=== PATIENT | female | born 1975 | race Two or more races ===

== ENCOUNTER 2016-12-07 00:15 | Emergency (ER) | payer MEDICAID ==
[~2016-12-07] VITALS: Ht 167.6 cm; Wt 80.3 kg
[2016-12-07 00:45] VITALS: BP 124/68
[2016-12-07 01:08] LABS: Basophils # (auto) 0 uL; Basophils % (auto) 0.3 % (0.0-2.0); CONDITION Y; DEFINITIVE SEE PRINTOUT; Eosinophils # (auto) 0.5 uL; Eosinophils % (auto) 4.7 % (0.0-7.0); Hematocrit 34.8 % (36.0-46.0); Hemoglobin 11.1 g/dL (12.2-16.2); Lymphocytes # (auto) 1.3 uL; Lymphocytes % (auto) 12.2 % (10.0-50.0); Mean Corpuscular Hemoglobin 24.4 pg (28.0-32.0); Mean Corpuscular Hgb Conc. 31.9 g/dL (32.0-36.0); Mean Corpuscular Volume 76.4 fL (80.0-100.0); Mean Platelet Volume 10.2 fL (7.4-10.4); Monocytes # (auto) 0.9 uL; Monocytes % (auto) 8.4 % (0.0-12.0); Neutrophils # (auto) 7.7 uL; Neutrophils % (auto) 74.4 % (37.0-80.0); Platelet Count (auto) 308 10^3/uL (140-450); Red Cell Distribution Width 17.5 % (11.6-16.0); White Blood Cell 10.3 10^3/uL (4.4-10.8)
[2016-12-07 01:32] LABS: Albumin 3.4 g/dL (3.4-5.0); Amylase 79 U/L (25-115); Anion Gap 10 (5-15); Aspartate Aminotransferase 10 U/L (15-37); BUN/Creatinine Ratio 14.9; Blood Urea Nitrogen 10 mg/dL (7-18); Calcium 9.4 mg/dL (8.5-10.1); Carbon Dioxide 23 mmol/L (21-32); Chloride 108 mmol/L (98-107); GFR African American 124 mL/min; GFR Non-African American 103 mL/min; Glucose 116 mg/dL (74-106); Sodium 141 mmol/L (136-145)
[2016-12-07 01:37] LABS: Alkaline Phosphatase 81 U/L (45-117); Bilirubin, Total 0.2 mg/dL (0.2-1.0); Total Protein 7.8 g/dL (6.4-8.2)
[2016-12-07 02:52] LABS: Urine Bilirubin Negative (Negative); Urine Blood Negative /uL (Negative); Urine Color Yellow (Yellow); Urine Glucose Normal (Normal); Urine Ketone Negative (Negative); Urine Nitrite Negative (Negative); Urine RBC <1 /hpf (0 - 4); Urine Squamous Epithelial Cell FEW /hpf (<5); Urine Urobilinogen Normal (Negative)
== END 2016-12-07 06:03 | disposition left against medical advice (07) ==
LOC: ER 00:15
DX: R50.9 Fever, unspecified (principal); R10.30 Lower abdominal pain, unspecified; Z53.21 Procedure and treatment not carried out due to patient leaving prior to being seen by health care provider
CPT/HCPCS: 36415; 80053; 81001; 81025; 82150; 83690; 84484; 85025

== ENCOUNTER 2018-08-31 12:53 | Emergency (ER) | payer MEDICAID ==
[~2018-08-31] VITALS: Ht 170.2 cm; Wt 83.9 kg
[2018-08-31 13:57] LABS: Basophils # (auto) 0 uL; Basophils % (auto) 0.5 % (0.0-2.0); Eosinophils # (auto) 0.4 uL; Eosinophils % (auto) 5.5 % (0.0-7.0); Hematocrit 42.5 % (36.0-46.0); Hemoglobin 14.3 g/dL (12.2-16.2); Lymphocytes # (auto) 1.2 uL; Lymphocytes % (auto) 16.3 % (10.0-50.0); Mean Corpuscular Hemoglobin 29.1 pg (28.0-32.0); Mean Corpuscular Hgb Conc. 33.5 g/dL (32.0-36.0); Mean Corpuscular Volume 86.8 fL (80.0-100.0); Monocytes # (auto) 0.5 uL; Neutrophils # (auto) 5.4 uL; Neutrophils % (auto) 70.7 % (37.0-80.0); Nucleated Red Blood Cells % 0.1 %; Platelet Count (auto) 236 10^3/uL (140-450); Red Cell Distribution Width 13.9 % (11.8-14.3); White Blood Cell 7.6 10^3/uL (4.4-10.8)
[2018-08-31 14:06] LABS: Albumin 3.7 g/dL (3.4-5.0); BUN/Creatinine Ratio 16.1; Calcium 10.2 mg/dL (8.5-10.1); Potassium 3.4 mmol/L (3.5-5.1)
[2018-08-31 14:09] LABS: Bilirubin, Total 0.2 mg/dL (0.2-1.0); Total Protein 7.7 g/dL (6.4-8.2)
[2018-08-31] MEDS ORDERED: POTASSIUM CHL 10% (20 MEQ/15ML) 15ml ORAL SOLN PO ONE (17:15)
[2018-08-31 18:24] VITALS: BP 136/53
== END 2018-08-31 18:35 | disposition home or self-care (01) ==
LOC: ER 13:03
DX: N83.202 Unspecified ovarian cyst, left side (principal); F17.210 Nicotine dependence, cigarettes, uncomplicated; Z90.49 Acquired absence of other specified parts of digestive tract; Z90.710 Acquired absence of both cervix and uterus
CPT/HCPCS: 36415; 74176; 80053; 85025

== ENCOUNTER 2020-08-01 22:29 | Emergency (ER) | payer MEDICAID ==
[~2020-08-01] VITALS: Ht 170.2 cm; Wt 86.2 kg
[2020-08-02 00:05] LABS: Albumin 3.8 g/dL (3.4-5.0); BUN/Creatinine Ratio 15.1; Basophils # (auto) 0.1 10 ^3/uL (0-0.2); Basophils % (auto) 0.7 % (0.0-2.0); Bilirubin, Total 0.3 mg/dL (0.2-1.0); Calcium 9.8 mg/dL (8.5-10.1); Eosinophils # (auto) 0.4 10 ^3/uL (0-0.8); Eosinophils % (auto) 4.9 % (0.0-7.0); Hematocrit 41.1 % (36.0-46.0); Hemoglobin 14.1 g/dL (12.2-16.2); Lymphocytes # (auto) 1.7 10 ^3/uL (0.4-5.4); Lymphocytes % (auto) 19.6 % (10.0-50.0); Mean Corpuscular Hemoglobin 29.4 pg (28.0-32.0); Mean Corpuscular Hgb Conc. 34.4 g/dL (32.0-36.0); Mean Corpuscular Volume 85.4 fL (80.0-100.0); Monocytes # (auto) 0.8 10 ^3/uL (0-1.3); Monocytes % (auto) 9.5 % (0.0-12.0); Neutrophils # (auto) 5.7 10 ^3/uL (1.6-8.6); Neutrophils % (auto) 65.3 % (37.0-80.0); Nucleated Red Blood Cells % 0.1 %; Platelet Count (auto) 220 10^3/uL (140-450); Red Cell Distribution Width 13.8 % (11.8-14.3); Total Protein 7.8 g/dL (6.4-8.2); White Blood Cell 8.8 10^3/uL (4.4-10.8)
[2020-08-02] MEDS ORDERED: MORPHINE SULFATE 4 MG/ML SYR/VIAL ONE (00:07)
[2020-08-02] MEDS ORDERED: ONDANSETRON HCL 4 MG/2 ML VIAL ONE (00:07)
[2020-08-02] MEDS ORDERED: MORPHINE SULFATE 4 MG/ML SYR/VIAL IV ONE (00:10)
[2020-08-02] MEDS ORDERED: ONDANSETRON HCL 4 MG/2 ML VIAL IV ONE (00:10)
[2020-08-02 00:13] LABS: Urine Bacteria FEW /hpf (None Seen); Urine Blood Negative /uL (Negative); Urine WBC 1 /hpf (0 - 5)
[2020-08-02] MEDS ORDERED: metroNIDAZOLE 500 MG TAB PO ONE (02:30)
[2020-08-02] MEDS ORDERED: CIPROFLOXACIN HCL 500 MG TAB PO ONE (02:30)
[2020-08-02 04:00] VITALS: BP 98/61
== END 2020-08-02 04:47 | disposition home or self-care (01) ==
LOC: ER 22:35
DX: K57.90 Diverticulosis of intestine, part unspecified, without perforation or abscess without bleeding (principal); F17.210 Nicotine dependence, cigarettes, uncomplicated
CPT/HCPCS: 36415; 74176; 80053; 81001; 85025; 96374; 96375; 99285; J2270; J2405

== ENCOUNTER 2020-10-31 14:42 | Inpatient (IN) | payer MEDICAID ==
[~2020-10-31] VITALS: Ht 165.1 cm; Wt 85.7 kg
[2020-10-31] MEDS ORDERED: metroNIDAZOLE 500MG/100ML 100 ML IV ONE (16:30)
[2020-10-31] MEDS ORDERED: ONDANSETRON HCL 4 MG/2 ML VIAL IV ONE (16:30)
[2020-10-31] MEDS ORDERED: MORPHINE SULF INJ 2 MG/ML SYRINGE 1ML IV ONE (16:30)
[2020-10-31] MEDS ORDERED: SODIUM CHLORIDE 0.9% 1,000 ML IV ONE (16:30)
[2020-10-31] MEDS ORDERED: cefTRIAXone 1GM/50ML D5W 50 ML IV ONE (16:30)
[2020-10-31 17:15] LABS: Basophils # (auto) 0.1 10 ^3/uL (0-0.2); Basophils % (auto) 0.5 % (0.0-2.0); Eosinophils # (auto) 0.4 10 ^3/uL (0-0.8); Eosinophils % (auto) 3.5 % (0.0-7.0); Hemoglobin 14.6 g/dL (12.2-16.2); Lymphocytes # (auto) 1.6 10 ^3/uL (0.4-5.4); Lymphocytes % (auto) 14.8 % (10.0-50.0); Mean Corpuscular Hemoglobin 30.5 pg (28.0-32.0); Mean Corpuscular Hgb Conc. 35.7 g/dL (32.0-36.0); Mean Corpuscular Volume 85.5 fL (80.0-100.0); Monocytes % (auto) 9.7 % (0.0-12.0); Neutrophils # (auto) 7.6 10 ^3/uL (1.6-8.6); Neutrophils % (auto) 71.5 % (37.0-80.0); Nucleated Red Blood Cells % 1.6 %; Platelet Count (auto) 196 10^3/uL (140-450); Red Cell Distribution Width 14.2 % (11.8-14.3); White Blood Cell 10.6 10^3/uL (4.4-10.8)
[2020-10-31 17:30] LABS: Albumin 3.9 g/dL (3.4-5.0); Calcium 10.1 mg/dL (8.5-10.1); Potassium 3.8 mmol/L (3.5-5.1)
[2020-10-31 17:33] LABS: BUN/Creatinine Ratio 6.8
[2020-10-31 17:34] LABS: Bilirubin, Total 0.5 mg/dL (0.2-1.0); Total Protein 8.3 g/dL (6.4-8.2)
[2020-10-31] MEDS ORDERED: ONDANSETRON HCL 4 MG/2 ML VIAL IV PRN (21:00)
[2020-10-31] MEDS ORDERED: DOCUSATE SOD 100 MG CAP PO PRN (21:00)
[2020-10-31] MEDS ORDERED: ACETAMINOPHEN 325 MG TAB PO PRN (21:00)
[2020-10-31] MEDS ORDERED: TEMAZEPAM 15 MG CAP PO PRN (21:00)
[2020-10-31] MEDS: metroNIDAZOLE 500MG/100ML 100 ML IV SCH (22:59)
[2020-10-31] MEDS: FAMOTIDINE 20 MG TAB PO SCH (23:00)
[2020-11-01] MEDS: metroNIDAZOLE 500MG/100ML 100 ML IV SCH ×3 (06:27→21:02)
[2020-11-01 07:00] LABS: Basophils # (auto) 0 10 ^3/uL (0-0.2); Basophils % (auto) 0.5 % (0.0-2.0); Eosinophils # (auto) 0.4 10 ^3/uL (0-0.8); Eosinophils % (auto) 4.7 % (0.0-7.0); Hematocrit 37.7 % (36.0-46.0); Hemoglobin 13.2 g/dL (12.2-16.2); Lymphocytes # (auto) 1.7 10 ^3/uL (0.4-5.4); Lymphocytes % (auto) 18.7 % (10.0-50.0); Mean Corpuscular Hemoglobin 30.1 pg (28.0-32.0); Mean Corpuscular Hgb Conc. 34.9 g/dL (32.0-36.0); Mean Corpuscular Volume 86.2 fL (80.0-100.0); Monocytes % (auto) 11.2 % (0.0-12.0); Neutrophils # (auto) 5.7 10 ^3/uL (1.6-8.6); Neutrophils % (auto) 64.9 % (37.0-80.0); Nucleated Red Blood Cells % 0.1 %; Platelet Count (auto) 172 10^3/uL (140-450); Red Blood Cells 4.38 10^6/uL (4.0-5.20); White Blood Cell 8.8 10^3/uL (4.4-10.8)
[2020-11-01 07:30] LABS: BUN/Creatinine Ratio 8.5; Calcium 8.9 mg/dL (8.5-10.1); Potassium 3.8 mmol/L (3.5-5.1)
[2020-11-01] MEDS: cefTRIAXone 1GM/50ML D5W 50 ML IV SCH (09:45)
[2020-11-01] MEDS: FAMOTIDINE 20 MG TAB PO SCH ×2 (09:45→21:03)
[2020-11-01] MEDS: HYDROcodone-ACET 5/325MG TAB PO PRN ×2 (10:03→21:14)
[2020-11-01] MEDS: DOCUSATE SOD 100 MG CAP PO SCH ×2 (12:24→21:02)
[2020-11-01] MEDS: SODIUM CHLORIDE 0.9% 1,000 ML IV SCH ×2 (12:24→21:01)
[2020-11-01 13:00] VITALS: BP 104/58
[2020-11-01 16:00] VITALS: BP 111/74
[2020-11-01 16:48] VITALS: BP 114/63
[2020-11-01] MEDS: SENNA 8.6 MG TAB PO SCH (21:03)
[2020-11-01 21:53] VITALS: BP 114/65
[2020-11-02 04:43] VITALS: BP 103/66
[2020-11-02] MEDS: metroNIDAZOLE 500MG/100ML 100 ML IV SCH ×3 (05:46→21:49)
[2020-11-02 06:29] LABS: Urine Bacteria NONE SEEN /hpf (None Seen); Urine Blood Negative /uL (Negative); Urine Mucus FEW (None Seen); Urine Specific Gravity 1.005 (1.001-1.035); Urine WBC <1 /hpf (0 - 5)
[2020-11-02 06:36] LABS: Basophils # (auto) 0 10 ^3/uL (0-0.2); Basophils % (auto) 0.8 % (0.0-2.0); Eosinophils # (auto) 0.7 10 ^3/uL (0-0.8); Eosinophils % (auto) 14.2 % (0.0-7.0); Hemoglobin 12.9 g/dL (12.2-16.2); Lymphocytes # (auto) 1.1 10 ^3/uL (0.4-5.4); Lymphocytes % (auto) 22.3 % (10.0-50.0); Mean Corpuscular Volume 85.7 fL (80.0-100.0); Monocytes # (auto) 0.6 10 ^3/uL (0-1.3); Monocytes % (auto) 11.7 % (0.0-12.0); Neutrophils # (auto) 2.6 10 ^3/uL (1.6-8.6); Platelet Count (auto) 161 10^3/uL (140-450); Red Blood Cells 4.32 10^6/uL (4.0-5.20); Red Cell Distribution Width 14.3 % (11.8-14.3); White Blood Cell 5.1 10^3/uL (4.4-10.8)
[2020-11-02 06:53] LABS: Calcium 9.1 mg/dL (8.5-10.1); Potassium 3.7 mmol/L (3.5-5.1)
[2020-11-02] MEDS: SODIUM CHLORIDE 0.9% 1,000 ML IV SCH ×2 (08:00→18:42)
[2020-11-02 08:36] VITALS: BP 100/55
[2020-11-02] MEDS: DOCUSATE SOD 100 MG CAP PO SCH ×2 (10:28→21:49)
[2020-11-02] MEDS: FAMOTIDINE 20 MG TAB PO SCH ×2 (10:28→21:49)
[2020-11-02] MEDS: cefTRIAXone 1GM/50ML D5W 50 ML IV SCH (10:28)
[2020-11-02] MEDS: HYDROcodone-ACET 5/325MG TAB PO PRN (10:29)
[2020-11-02] MEDS: MORPHINE SULF INJ 2 MG/ML SYRINGE 1ML IV PRN ×2 (12:06→20:45)
[2020-11-02 13:31] VITALS: BP 115/51
[2020-11-02 16:12] VITALS: BP 113/69
[2020-11-02] MEDS: SENNA 8.6 MG TAB PO SCH (21:50)
[2020-11-02 22:00] VITALS: BP 112/67
[2020-11-03] MEDS: SODIUM CHLORIDE 0.9% 1,000 ML IV SCH ×2 (03:43→14:15)
[2020-11-03 05:00] VITALS: BP 104/76
[2020-11-03 05:14] LABS: Basophils # (auto) 0 10 ^3/uL (0-0.2); Basophils % (auto) 0.9 % (0.0-2.0); Eosinophils # (auto) 0.6 10 ^3/uL (0-0.8); Eosinophils % (auto) 12.7 % (0.0-7.0); Hematocrit 38.6 % (36.0-46.0); Hemoglobin 13.7 g/dL (12.2-16.2); Lymphocytes # (auto) 1.1 10 ^3/uL (0.4-5.4); Lymphocytes % (auto) 22.7 % (10.0-50.0); Mean Corpuscular Hemoglobin 30.2 pg (28.0-32.0); Mean Corpuscular Hgb Conc. 35.4 g/dL (32.0-36.0); Mean Corpuscular Volume 85.4 fL (80.0-100.0); Monocytes # (auto) 0.5 10 ^3/uL (0-1.3); Monocytes % (auto) 9.4 % (0.0-12.0); Neutrophils # (auto) 2.6 10 ^3/uL (1.6-8.6); Neutrophils % (auto) 54.3 % (37.0-80.0); Nucleated Red Blood Cells % 0.1 %; Platelet Count (auto) 191 10^3/uL (140-450); Red Blood Cells 4.52 10^6/uL (4.0-5.20); Red Cell Distribution Width 13.9 % (11.8-14.3); White Blood Cell 4.9 10^3/uL (4.4-10.8)
[2020-11-03] MEDS: metroNIDAZOLE 500MG/100ML 100 ML IV SCH ×3 (05:33→22:33)
[2020-11-03 05:34] LABS: Calcium 9.4 mg/dL (8.5-10.1); Potassium 3.9 mmol/L (3.5-5.1)
[2020-11-03 05:36] LABS: BUN/Creatinine Ratio 9.1
[2020-11-03 09:00] VITALS: BP 99/52
[2020-11-03] MEDS: cefTRIAXone 1GM/50ML D5W 50 ML IV SCH (09:41)
[2020-11-03] MEDS: DOCUSATE SOD 100 MG CAP PO SCH ×2 (09:47→22:34)
[2020-11-03] MEDS: FAMOTIDINE 20 MG TAB PO SCH ×2 (09:47→22:34)
[2020-11-03] MEDS: MORPHINE SULF INJ 2 MG/ML SYRINGE 1ML IV PRN (12:15)
[2020-11-03 12:41] VITALS: BP 115/78
[2020-11-03 16:59] VITALS: BP 135/75
[2020-11-03 22:00] VITALS: BP 114/61
[2020-11-03] MEDS: SENNA 8.6 MG TAB PO SCH (22:00)
[2020-11-04] MEDS: SODIUM CHLORIDE 0.9% 1,000 ML IV SCH ×2 (02:32→10:00)
[2020-11-04 05:00] VITALS: BP 108/69
[2020-11-04 05:59] LABS: Basophils # (auto) 0 10 ^3/uL (0-0.2); Basophils % (auto) 0.9 % (0.0-2.0); Eosinophils # (auto) 0.5 10 ^3/uL (0-0.8); Eosinophils % (auto) 12.1 % (0.0-7.0); Hematocrit 39.8 % (36.0-46.0); Hemoglobin 13.8 g/dL (12.2-16.2); Lymphocytes # (auto) 0.9 10 ^3/uL (0.4-5.4); Lymphocytes % (auto) 20.6 % (10.0-50.0); Mean Corpuscular Hemoglobin 29.6 pg (28.0-32.0); Mean Corpuscular Hgb Conc. 34.7 g/dL (32.0-36.0); Mean Corpuscular Volume 85.3 fL (80.0-100.0); Monocytes # (auto) 0.5 10 ^3/uL (0-1.3); Monocytes % (auto) 11.6 % (0.0-12.0); Neutrophils # (auto) 2.5 10 ^3/uL (1.6-8.6); Neutrophils % (auto) 54.8 % (37.0-80.0); Nucleated Red Blood Cells % 0.2 %; Platelet Count (auto) 211 10^3/uL (140-450); Red Blood Cells 4.67 10^6/uL (4.0-5.20); Red Cell Distribution Width 13.8 % (11.8-14.3); White Blood Cell 4.5 10^3/uL (4.4-10.8)
[2020-11-04 06:18] LABS: Potassium 3.7 mmol/L (3.5-5.1)
[2020-11-04 06:35] LABS: BUN/Creatinine Ratio 8.6; Calcium 9.6 mg/dL (8.5-10.1)
[2020-11-04] MEDS: metroNIDAZOLE 500MG/100ML 100 ML IV SCH ×2 (06:35→14:00)
[2020-11-04 09:00] VITALS: BP 107/65
[2020-11-04] MEDS: cefTRIAXone 1GM/50ML D5W 50 ML IV SCH (09:31)
[2020-11-04] MEDS: FAMOTIDINE 20 MG TAB PO SCH (09:56)
[2020-11-04] MEDS: DOCUSATE SOD 100 MG CAP PO SCH (09:56)
[2020-11-04] MEDS ORDERED: METR500T PO (10:11)
[2020-11-04] MEDS ORDERED: CIPR-173 PO (10:11)
[2020-11-04] MEDS ORDERED: SENN-58 PO (10:11)
[2020-11-04 13:00] VITALS: BP 124/69
== END 2020-11-04 16:20 | disposition home or self-care (01) | DRG 244 ==
LOC: ER 14:43 → OVERFLOW 20:58 → CENTRAL 11-01 10:49
PROVIDERS: ADMIT Nurse Practitioner; ATTEND Internal Medicine Pulmonary Disease
DX: K57.32 Diverticulitis of large intestine without perforation or abscess without bleeding (principal); K59.00 Constipation, unspecified; N83.202 Unspecified ovarian cyst, left side; Z72.0 Tobacco use; Z90.710 Acquired absence of both cervix and uterus; Z90.49 Acquired absence of other specified parts of digestive tract; Z20.822 Contact with and (suspected) exposure to COVID-19
CPT/HCPCS: 36415; 74176; 76830; 76856; 80048; 80053; 81001; 85025; 87426; 96365; 96366; 96375; G0378; J0696; J2405; J3490

== ENCOUNTER → 2021-06-11 | Emergency (ER) | payer MEDICAID ==
[~2021-06-11] VITALS: Ht 167.6 cm; Wt 63.5 kg
[~2021-06-11] MED LIST: ACET-1158 PO; ACETAMINOPHEN 325 MG TAB PO ONE; ALBUAER3 IN; BENZ100C97 PO; CIPR-173 PO; DOXY-286 PO; METR500T PO; PRED20TA2 PO; SENN-58 PO; SODIUM CHLORIDE 0.9% 1,000 ML IV ONE; cefTRIAXone SOD 1,000 MG VL IM ONE; methylPREDNISolone SOD SUCC 125 MG/2 ML VL IM ONE
[2021-06-11 17:21] VITALS: BP 110/61
== END | disposition home or self-care (01) ==
LOC: ER 11:01
DX: U07.1 COVID-19 (principal); J12.82 Pneumonia due to coronavirus disease 2019; E11.9 Type 2 diabetes mellitus without complications; F17.210 Nicotine dependence, cigarettes, uncomplicated; Z90.49 Acquired absence of other specified parts of digestive tract; Z90.710 Acquired absence of both cervix and uterus
CPT/HCPCS: 36415; 71045; 87426; 96372; 99284; J0696; J2930

== ENCOUNTER 2021-07-26 19:22 | Emergency (ER) | payer MEDICAID ==
[~2021-07-26] VITALS: Ht 157.5 cm; Wt 86.2 kg
[~2021-07-26 19:22] MED LIST changes: -ACETAMINOPHEN 325 MG TAB PO ONE; -SODIUM CHLORIDE 0.9% 1,000 ML IV ONE; -cefTRIAXone SOD 1,000 MG VL IM ONE; -methylPREDNISolone SOD SUCC 125 MG/2 ML VL IM ONE
[2021-07-26] MEDS ORDERED: traMADol HCL 50 MG TAB PO ONE (20:30)
[2021-07-26 20:47] VITALS: BP 135/82
== END 2021-07-26 20:48 | disposition home or self-care (01) ==
LOC: ER 19:22
DX: G44.209 Tension-type headache, unspecified, not intractable (principal); E11.9 Type 2 diabetes mellitus without complications; F17.210 Nicotine dependence, cigarettes, uncomplicated; Z90.49 Acquired absence of other specified parts of digestive tract; Z90.710 Acquired absence of both cervix and uterus
CPT/HCPCS: 70450

== ENCOUNTER → 2021-11-09 22:19 | Emergency (ER) | payer MEDICAID | END | disposition left against medical advice (07) | LOC: ER 22:19 | DX: F41.0 Panic disorder [episodic paroxysmal anxiety] (principal); Z53.21 Procedure and treatment not carried out due to patient leaving prior to being seen by health care provider ==

== ENCOUNTER 2021-12-19 13:27 | Inpatient (IN) | payer MEDICAID ==
[~2021-12-19] VITALS: Ht 170.2 cm; Wt 83.8 kg
[2021-12-19] MEDS ORDERED: metroNIDAZOLE 500MG/100ML 100 ML IV ONE (15:00)
[2021-12-19] MEDS ORDERED: SODIUM CHLORIDE 0.9% 1,000 ML IV ONE ×2 (15:00)
[2021-12-19] MEDS ORDERED: cefTRIAXone 1GM/50ML D5W 50 ML IV ONE (15:00)
[2021-12-19 15:11] LABS: Basophils # (auto) 0 10 ^3/uL (0-0.2); Basophils % (auto) 0.4 % (0.0-2.0); Eosinophils # (auto) 0.4 10 ^3/uL (0-0.8); Eosinophils % (auto) 5.4 % (0.0-7.0); Hematocrit 43.7 % (36.0-46.0); Hemoglobin 14.5 g/dL (12.2-16.2); Lymphocytes % (auto) 12.6 % (10.0-50.0); Mean Corpuscular Hemoglobin 28.4 pg (28.0-32.0); Mean Corpuscular Hgb Conc. 33.3 g/dL (32.0-36.0); Mean Corpuscular Volume 85.4 fL (80.0-100.0); Monocytes # (auto) 0.8 10 ^3/uL (0-1.3); Neutrophils # (auto) 5.8 10 ^3/uL (1.6-8.6); Neutrophils % (auto) 71.6 % (37.0-80.0); Nucleated Red Blood Cells % 0.1 %; Red Blood Cells 5.11 10^6/uL (4.0-5.20); Red Cell Distribution Width 14.6 % (11.8-14.3); White Blood Cell 8.1 10^3/uL (4.4-10.8)
[2021-12-19 15:15] LABS: Urine Bacteria FEW /hpf (None Seen); Urine Blood Negative /uL (Negative); Urine Specific Gravity 1.021 (1.001-1.035); Urine WBC <1 /hpf (0 - 5)
[2021-12-19 15:40] LABS: Albumin 4.3 g/dL (3.4-5.0); BUN/Creatinine Ratio 11.9; Calcium 10.8 mg/dL (8.5-10.1); Potassium 3.7 mmol/L (3.5-5.1)
[2021-12-19 15:43] LABS: Bilirubin, Total 0.4 mg/dL (0.2-1.0); Total Protein 8.2 g/dL (6.4-8.2)
[2021-12-19] MEDS: SODIUM CHLORIDE 0.9% 1,000 ML IV SCH (18:30)
[2021-12-19] MEDS ORDERED: ONDANSETRON HCL 4 MG/2 ML VIAL IV PRN (18:30)
[2021-12-19] MEDS ORDERED: DEXTROSE (50%) 50ML SYRG IV PRN (18:30)
[2021-12-19 19:23] LABS: Cholesterol 75 mg/dL (< 200)
[2021-12-19 19:25] LABS: HDL Cholesterol 34 mg/dL (40-59); LDL Cholesterol 39 mg/dL (< 100); Triglycerides 71 mg/dL (< 150)
[2021-12-19] MEDS ORDERED: ATOR10TA52 PO (20:34)
[2021-12-19] MEDS ORDERED: METF-370 PO (20:34)
[2021-12-19] MEDS ORDERED: LISI2.5T47 PO (20:34)
[2021-12-19] MEDS: metroNIDAZOLE 500MG/100ML 100 ML IV SCH (22:19)
[2021-12-19] MEDS: ACCU-CHEK COMFORT CURVE STRIP VI SCH (23:44)
[2021-12-19] MEDS: InsuLIN REG 1unit/0.01ml Soln (100units/ml) SC SCH (23:46)
[2021-12-19] MEDS: MORPHINE SULFATE INJ 2 MG/ml SYRG IV PRN (23:52)
[2021-12-20 04:25] VITALS: BP 93/57
[2021-12-20] MEDS: SODIUM CHLORIDE 0.9% 1,000 ML IV SCH ×4 (04:54→21:30)
[2021-12-20] MEDS: ACCU-CHEK COMFORT CURVE STRIP VI SCH ×3 (05:24→18:58)
[2021-12-20] MEDS: InsuLIN REG 1unit/0.01ml Soln (100units/ml) SC SCH ×3 (05:24→18:57)
[2021-12-20] MEDS: metroNIDAZOLE 500MG/100ML 100 ML IV SCH ×3 (05:34→22:33)
[2021-12-20 06:28] LABS: Basophils # (auto) 0 10 ^3/uL (0-0.2); Basophils % (auto) 0.5 % (0.0-2.0); Eosinophils # (auto) 0.5 10 ^3/uL (0-0.8); Eosinophils % (auto) 7.7 % (0.0-7.0); Hematocrit 36.9 % (36.0-46.0); Hemoglobin 12.6 g/dL (12.2-16.2); Lymphocytes # (auto) 1.2 10 ^3/uL (0.4-5.4); Lymphocytes % (auto) 21.2 % (10.0-50.0); Mean Corpuscular Hemoglobin 28.9 pg (28.0-32.0); Mean Corpuscular Hgb Conc. 34.1 g/dL (32.0-36.0); Mean Corpuscular Volume 84.8 fL (80.0-100.0); Monocytes # (auto) 0.8 10 ^3/uL (0-1.3); Monocytes % (auto) 13.5 % (0.0-12.0); Neutrophils # (auto) 3.4 10 ^3/uL (1.6-8.6); Neutrophils % (auto) 57.1 % (37.0-80.0); Red Blood Cells 4.35 10^6/uL (4.0-5.20); Red Cell Distribution Width 14.5 % (11.8-14.3); White Blood Cell 5.9 10^3/uL (4.4-10.8)
[2021-12-20 06:36] LABS: Potassium 3.9 mmol/L (3.5-5.1)
[2021-12-20 06:42] LABS: Albumin 3.5 g/dL (3.4-5.0); Calcium 9.3 mg/dL (8.5-10.1)
[2021-12-20 06:45] LABS: Bilirubin, Total 0.4 mg/dL (0.2-1.0); Total Protein 6.9 g/dL (6.4-8.2)
[2021-12-20 08:00] VITALS: BP 97/62
[2021-12-20 09:00] VITALS: BP 104/67
[2021-12-20] MEDS: MORPHINE SULFATE INJ 2 MG/ml SYRG IV PRN ×2 (09:46→22:34)
[2021-12-20] MEDS: NICOTINE 7MG/24HR TOPICAL PATCH TD SCH (09:49)
[2021-12-20] MEDS ORDERED: cefTRIAXone 1GM/50ML D5W 50 ML IV ONE (11:30)
[2021-12-20 13:00] VITALS: BP 97/62
[2021-12-20 16:55] VITALS: BP 98/58
[2021-12-20 22:00] VITALS: BP 109/62
[2021-12-21] VITALS (7 sets, daily range): BP systolic 100–120; BP diastolic 61–69
[2021-12-21] MEDS: InsuLIN REG 1unit/0.01ml Soln (100units/ml) SC SCH ×4 (00:39→17:54)
[2021-12-21] MEDS: ACCU-CHEK COMFORT CURVE STRIP VI SCH ×4 (00:39→18:11)
[2021-12-21] MEDS: SODIUM CHLORIDE 0.9% 1,000 ML IV SCH ×4 (02:30→18:11)
[2021-12-21] MEDS: metroNIDAZOLE 500MG/100ML 100 ML IV SCH ×3 (05:54→21:52)
[2021-12-21 05:55] LABS: Basophils # (auto) 0 10 ^3/uL (0-0.2); Basophils % (auto) 0.6 % (0.0-2.0); Eosinophils # (auto) 0.6 10 ^3/uL (0-0.8); Eosinophils % (auto) 10.7 % (0.0-7.0); Hematocrit 37.8 % (36.0-46.0); Hemoglobin 12.9 g/dL (12.2-16.2); Lymphocytes # (auto) 1.1 10 ^3/uL (0.4-5.4); Lymphocytes % (auto) 20.2 % (10.0-50.0); Mean Corpuscular Hemoglobin 28.8 pg (28.0-32.0); Mean Corpuscular Hgb Conc. 34.3 g/dL (32.0-36.0); Mean Corpuscular Volume 84.1 fL (80.0-100.0); Monocytes # (auto) 0.6 10 ^3/uL (0-1.3); Monocytes % (auto) 10.2 % (0.0-12.0); Neutrophils # (auto) 3.2 10 ^3/uL (1.6-8.6); Neutrophils % (auto) 58.3 % (37.0-80.0); Nucleated Red Blood Cells % 0.1 %; Red Blood Cells 4.49 10^6/uL (4.0-5.20); Red Cell Distribution Width 14.7 % (11.8-14.3); White Blood Cell 5.6 10^3/uL (4.4-10.8)
[2021-12-21 06:14] LABS: Calcium 9.3 mg/dL (8.5-10.1); Potassium 3.8 mmol/L (3.5-5.1)
[2021-12-21] MEDS: MORPHINE SULFATE INJ 2 MG/ml SYRG IV PRN (07:37)
[2021-12-21] MEDS: cefTRIAXone 1GM/50ML D5W 50 ML IV SCH (08:31)
[2021-12-21] MEDS: NICOTINE 7MG/24HR TOPICAL PATCH TD SCH (08:32)
[2021-12-21] MEDS: LACTULOSE 20Gm/30ML SOLN PO SCH ×3 (18:00→23:40)
[2021-12-21] MEDS: DOCUSATE SOD 100 MG CAP PO SCH (21:52)
[2021-12-21] MEDS ORDERED: LACTULOSE 20Gm/30ML SOLN PO SCH (22:00)
[2021-12-22] MEDS: ACCU-CHEK COMFORT CURVE STRIP VI SCH ×5 (00:09→23:39)
[2021-12-22] MEDS: SODIUM CHLORIDE 0.9% 1,000 ML IV SCH ×3 (03:30→23:30)
[2021-12-22 05:00] VITALS: BP 104/62
[2021-12-22] MEDS: metroNIDAZOLE 500MG/100ML 100 ML IV SCH ×3 (05:47→22:24)
[2021-12-22] MEDS: LACTULOSE 20Gm/30ML SOLN PO SCH ×4 (05:47→23:39)
[2021-12-22] MEDS: InsuLIN REG 1unit/0.01ml Soln (100units/ml) SC SCH ×5 (06:00→23:39)
[2021-12-22 08:00] VITALS: BP 120/69
[2021-12-22 09:00] VITALS: BP 107/67
[2021-12-22] MEDS: cefTRIAXone 1GM/50ML D5W 50 ML IV SCH (09:38)
[2021-12-22] MEDS: DOCUSATE SOD 100 MG CAP PO SCH ×2 (09:38→22:24)
[2021-12-22] MEDS: NICOTINE 7MG/24HR TOPICAL PATCH TD SCH (09:40)
[2021-12-22 13:00] VITALS: BP_SYST 117
[2021-12-22 16:27] VITALS: BP 115/65
[2021-12-22 22:00] VITALS: BP 114/71
[2021-12-22] MEDS: MORPHINE SULFATE INJ 2 MG/ml SYRG IV PRN (22:23)
[2021-12-23 05:06] VITALS: BP 102/59
[2021-12-23] MEDS: InsuLIN REG 1unit/0.01ml Soln (100units/ml) SC SCH ×3 (05:37→18:00)
[2021-12-23] MEDS: ACCU-CHEK COMFORT CURVE STRIP VI SCH ×3 (05:37→18:34)
[2021-12-23] MEDS: metroNIDAZOLE 500MG/100ML 100 ML IV SCH ×3 (05:37→21:40)
[2021-12-23] MEDS: LACTULOSE 20Gm/30ML SOLN PO SCH ×3 (05:38→18:34)
[2021-12-23 07:35] LABS: Basophils # (auto) 0 10 ^3/uL (0-0.2); Basophils % (auto) 0.9 % (0.0-2.0); Eosinophils # (auto) 0.7 10 ^3/uL (0-0.8); Eosinophils % (auto) 11.8 % (0.0-7.0); Hematocrit 37.1 % (36.0-46.0); Hemoglobin 12.7 g/dL (12.2-16.2); Lymphocytes # (auto) 1.2 10 ^3/uL (0.4-5.4); Lymphocytes % (auto) 22.5 % (10.0-50.0); Mean Corpuscular Hemoglobin 28.5 pg (28.0-32.0); Mean Corpuscular Hgb Conc. 34.3 g/dL (32.0-36.0); Mean Corpuscular Volume 83.2 fL (80.0-100.0); Monocytes # (auto) 0.8 10 ^3/uL (0-1.3); Monocytes % (auto) 13.7 % (0.0-12.0); Neutrophils # (auto) 2.8 10 ^3/uL (1.6-8.6); Neutrophils % (auto) 51.1 % (37.0-80.0); Nucleated Red Blood Cells % 0.1 %; Red Blood Cells 4.46 10^6/uL (4.0-5.20); Red Cell Distribution Width 14.4 % (11.8-14.3); White Blood Cell 5.5 10^3/uL (4.4-10.8)
[2021-12-23 07:52] LABS: Potassium 3.9 mmol/L (3.5-5.1)
[2021-12-23 07:57] LABS: BUN/Creatinine Ratio 14.3; Calcium 9.6 mg/dL (8.5-10.1)
[2021-12-23 08:00] VITALS: BP 126/72
[2021-12-23] MEDS: cefTRIAXone 1GM/50ML D5W 50 ML IV SCH (09:00)
[2021-12-23 09:12] VITALS: BP 98/59
[2021-12-23] MEDS: SODIUM CHLORIDE 0.9% 1,000 ML IV SCH ×2 (09:30→21:40)
[2021-12-23] MEDS: NICOTINE 7MG/24HR TOPICAL PATCH TD SCH (10:00)
[2021-12-23] MEDS: DOCUSATE SOD 100 MG CAP PO SCH ×2 (10:00→21:40)
[2021-12-23 12:35] VITALS: BP 110/69
[2021-12-23 16:47] VITALS: BP 119/74
[2021-12-23 22:00] VITALS: BP 112/65
[2021-12-24] MEDS: ACCU-CHEK COMFORT CURVE STRIP VI SCH ×3 (01:16→12:31)
[2021-12-24 05:00] VITALS: BP 106/57
[2021-12-24] MEDS: SODIUM CHLORIDE 0.9% 1,000 ML IV SCH (05:30)
[2021-12-24] MEDS: LACTULOSE 20Gm/30ML SOLN PO SCH ×3 (06:00→12:00)
[2021-12-24] MEDS: metroNIDAZOLE 500MG/100ML 100 ML IV SCH (06:01)
[2021-12-24] MEDS: InsuLIN REG 1unit/0.01ml Soln (100units/ml) SC SCH ×3 (06:07→12:24)
[2021-12-24 07:29] LABS: Basophils # (auto) 0 10 ^3/uL (0-0.2); Basophils % (auto) 0.9 % (0.0-2.0); Eosinophils # (auto) 0.7 10 ^3/uL (0-0.8); Eosinophils % (auto) 11.8 % (0.0-7.0); Hematocrit 37.2 % (36.0-46.0); Hemoglobin 12.7 g/dL (12.2-16.2); Lymphocytes # (auto) 1.2 10 ^3/uL (0.4-5.4); Lymphocytes % (auto) 20.8 % (10.0-50.0); Mean Corpuscular Hemoglobin 28.4 pg (28.0-32.0); Mean Corpuscular Hgb Conc. 34.1 g/dL (32.0-36.0); Mean Corpuscular Volume 83.3 fL (80.0-100.0); Monocytes # (auto) 0.6 10 ^3/uL (0-1.3); Monocytes % (auto) 10.6 % (0.0-12.0); Neutrophils # (auto) 3.2 10 ^3/uL (1.6-8.6); Neutrophils % (auto) 55.9 % (37.0-80.0); Nucleated Red Blood Cells % 0.1 %; Red Blood Cells 4.47 10^6/uL (4.0-5.20); Red Cell Distribution Width 14.4 % (11.8-14.3); White Blood Cell 5.7 10^3/uL (4.4-10.8)
[2021-12-24 07:48] LABS: Calcium 9.3 mg/dL (8.5-10.1); Potassium 3.5 mmol/L (3.5-5.1)
[2021-12-24 08:00] VITALS: BP 102/68
[2021-12-24 08:36] VITALS: BP 102/68
[2021-12-24] MEDS: cefTRIAXone 1GM/50ML D5W 50 ML IV SCH (09:45)
[2021-12-24] MEDS: DOCUSATE SOD 100 MG CAP PO SCH (09:45)
[2021-12-24] MEDS: NICOTINE 7MG/24HR TOPICAL PATCH TD SCH (09:48)
[2021-12-24] MEDS ORDERED: METR500T PO (10:18)
[2021-12-24] MEDS ORDERED: CIPR-173 PO (10:18)
[2021-12-24 12:32] VITALS: BP 122/74
[2021-12-24 13:00] VITALS: BP 122/74
== END 2021-12-24 14:53 | disposition home or self-care (01) | DRG 244 ==
LOC: ER 13:27 → OVERFLOW 18:29 → WEST WING 20:55
PROVIDERS: ADMIT Registered Nurse; ATTEND Internal Medicine Pulmonary Disease
DX: K57.32 Diverticulitis of large intestine without perforation or abscess without bleeding (principal); K76.0 Fatty (change of) liver, not elsewhere classified; E11.65 Type 2 diabetes mellitus with hyperglycemia; N39.0 Urinary tract infection, site not specified; F17.210 Nicotine dependence, cigarettes, uncomplicated; K59.00 Constipation, unspecified; Z83.3 Family history of diabetes mellitus; Z90.710 Acquired absence of both cervix and uterus; Z90.49 Acquired absence of other specified parts of digestive tract; Z20.822 Contact with and (suspected) exposure to COVID-19; Z71.6 Tobacco abuse counseling; Z79.84 Long term (current) use of oral hypoglycemic drugs
CPT/HCPCS: 36415; 74176; 80048; 80053; 80061; 81001; 82962; 83036; 83605; 85025; 87040; 87086; 96365; 96368; G0378; J0696; J1815; J2405; J3490

== ENCOUNTER 2022-11-09 22:48 | Emergency (ER) | payer MEDICAID ==
[~2022-11-09] VITALS: Ht 167.6 cm; Wt 86.3 kg
[~2022-11-09 22:48] MED LIST changes: -ACET-1158 PO; +ACET500T58 PO; +ATOR10TA52 PO; -DOXY-286 PO; +LISI2.5T47 PO; +METF-370 PO
[2022-11-09 23:51] LABS: Basophils # (auto) 0.1 10 ^3/uL (0-0.2); Basophils % (auto) 0.7 % (0.0-2.0); Eosinophils % (auto) 11.6 % (0.0-7.0); Hematocrit 39.9 % (36.0-46.0); Hemoglobin 13.7 g/dL (12.2-16.2); Lymphocytes # (auto) 2.3 10 ^3/uL (0.4-5.4); Lymphocytes % (auto) 27.9 % (10.0-50.0); Mean Corpuscular Hemoglobin 29.4 pg (28.0-32.0); Mean Corpuscular Hgb Conc. 34.3 g/dL (32.0-36.0); Mean Corpuscular Volume 85.5 fL (80.0-100.0); Monocytes # (auto) 0.5 10 ^3/uL (0-1.3); Monocytes % (auto) 6.5 % (0.0-12.0); Neutrophils # (auto) 4.4 10 ^3/uL (1.6-8.6); Neutrophils % (auto) 53.3 % (37.0-80.0); Nucleated Red Blood Cells % 0.1 %; Red Blood Cells 4.67 10^6/uL (4.0-5.20); Red Cell Distribution Width 14.3 % (11.8-14.3); White Blood Cell 8.2 10^3/uL (4.4-10.8)
[2022-11-10 00:06] LABS: Albumin 3.6 g/dL (3.4-5.0); BUN/Creatinine Ratio 16.2 (10.0-20.0); Calcium 10.7 mg/dL (8.5-10.1); Potassium 3.5 mmol/L (3.5-5.1)
[2022-11-10 00:14] LABS: Bilirubin, Total 0.2 mg/dL (0.2-1.0); Total Protein 7.7 g/dL (6.4-8.2)
[2022-11-10] MEDS ORDERED: FLEET ENEMA(ADULT) 135 ML PR ONE (00:15)
[2022-11-10] MEDS ORDERED: LACTULOSE 20Gm/30ML SOLN PO ONE (00:15)
[2022-11-10] MEDS ORDERED: ACETAMINOPHEN 500 MG TAB PO ONE (00:15)
[2022-11-10 00:29] LABS: Urine Bacteria NONE SEEN /hpf (None Seen); Urine Blood Negative /uL (Negative); Urine Mucus FEW (None Seen); Urine Specific Gravity 1.015 (1.001-1.035); Urine WBC 2 /hpf (0 - 5)
[2022-11-10] MEDS ORDERED: HYDROmorphone HCL 2 MG/ML VL/or syr IV ONE (01:00)
[2022-11-10] MEDS ORDERED: HYDROmorphone HCL 2 MG/ML VL/or syr IM ONE (01:15)
[2022-11-10] MEDS ORDERED: SODIUM CHLORIDE 0.9% 1,000 ML IV ONE (01:30)
[2022-11-10] MEDS ORDERED: ACET300T58 PO (01:52)
[2022-11-10] MEDS ORDERED: LACT10SO3 PO (01:52)
[2022-11-10] MEDS ORDERED: IBUP-1455 PO (01:52)
[2022-11-10 06:21] VITALS: BP 112/65
== END 2022-11-10 06:23 | disposition home or self-care (01) ==
LOC: ER 22:48
DX: K59.00 Constipation, unspecified (principal); E11.9 Type 2 diabetes mellitus without complications; F17.210 Nicotine dependence, cigarettes, uncomplicated; Z90.49 Acquired absence of other specified parts of digestive tract; Z90.710 Acquired absence of both cervix and uterus; Z88.6 Allergy status to analgesic agent; Z88.1 Allergy status to other antibiotic agents
CPT/HCPCS: 36415; 74176; 80053; 81001; 83690; 85025; 96360; 99284; J1170; J7030

== ENCOUNTER 2023-10-25 02:11 | Inpatient (IN) | payer MEDICAID ==
[~2023-10-25] VITALS: Ht 170.2 cm; Wt 77.9 kg
[2023-10-25] VITALS (7 sets, daily range): BP systolic 90–105; BP diastolic 49–69; PULSE 62–77; RESP 12–20; TEMP 97.4–98.2; O2SAT 95–100
[~2023-10-25 02:11] MED LIST changes: +ACET300T58 PO; +IBUP-1455 PO; +LACT10SO3 PO
[2023-10-25 03:09] LABS: Urine Bacteria FEW /hpf (None Seen); Urine Blood Negative /uL (Negative); Urine Clarity Clear (Clear); Urine Color Light-Yellow (Yellow); Urine Protein, UAD Negative (Negative); Urine Specific Gravity 1.012 (1.001-1.035); Urine Urobilinogen Normal (Negative); Urine WBC 2 /hpf (0 - 5); Urine pH 5.5 (5.0-9.0)
[2023-10-25 03:29] LABS: Alanine Aminotransferase 41 U/L (7-40); Albumin 4.7 g/dL (3.2-4.8); Alkaline Phosphatase 78 U/L (46-116); Anion Gap 6 (5-15); Aspartate Aminotransferase 16 U/L (13-40); BUN/Creatinine Ratio 13.8 (10.0-20.0); Bilirubin, Total 0.3 mg/dL (0.2-1.0); Blood Urea Nitrogen 11 mg/dL (9-23); Calcium 11.1 mg/dL (8.7-10.4); Carbon Dioxide 27 mmol/L (20-30); Chloride 110 mmol/L (98-107); Glucose 134 mg/dL (74-106); Lipase 56 U/L (12-53); Potassium 3.6 mmol/L (3.5-5.1); Sodium 143 mmol/L (136-145); Total Protein 7.7 g/dL (5.7-8.2)
[2023-10-25] MEDS: MORPHINE SULFATE 4 MG/ML SYR/VIAL IV ONE ×2 (03:41→05:42)
[2023-10-25] MEDS: PIPERACILLIN-TAZO 4.5GM 100 ML IV ONE (03:42)
[2023-10-25] MEDS: ONDANSETRON HCL 4 MG/2 ML VIAL IV ONE (03:42)
[2023-10-25] MEDS: PANTOPRAZOLE 40 MG/10 ML VIAL INJ IV ONE (03:42)
[2023-10-25 03:44] LABS: Basophils # (auto) 0.1 10 ^3/uL (0-0.2); Basophils % (auto) 0.9 % (0.0-2.0); Eosinophils # (auto) 0.4 10 ^3/uL (0-0.8); Eosinophils % (auto) 4.2 % (0.0-7.0); Hematocrit 42.5 % (36.0-46.0); Hemoglobin 14.4 g/dL (12.2-16.2); Lymphocytes # (auto) 3.3 10 ^3/uL (0.4-5.4); Lymphocytes % (auto) 34.1 % (10.0-50.0); Mean Corpuscular Hemoglobin 29.3 pg (28.0-32.0); Mean Corpuscular Hgb Conc. 33.8 g/dL (32.0-36.0); Mean Corpuscular Volume 86.7 fL (80.0-100.0); Monocytes # (auto) 0.7 10 ^3/uL (0-1.3); Monocytes % (auto) 6.9 % (0.0-12.0); Neutrophils # (auto) 5.2 10 ^3/uL (1.6-8.6); Neutrophils % (auto) 53.9 % (37.0-80.0); Nucleated Red Blood Cells % 0.2 %; Red Cell Distribution Width 13.9 % (11.8-14.3); White Blood Cell 9.6 10^3/uL (4.4-10.8)
[2023-10-25] MEDS ORDERED: MORPHINE SULFATE INJ 2 MG/ml SYRG IV PRN ×2 (05:00→06:30)
[2023-10-25] MEDS ORDERED: DEXTROSE (50%) 50ML SYRG IV PRN (05:00)
[2023-10-25] MEDS ORDERED: ONDANSETRON HCL 4 MG/2 ML VIAL IV PRN (05:00)
[2023-10-25] MEDS: SODIUM CHLORIDE 0.9% 500 ML IV ONE (05:36)
[2023-10-25] MEDS: SODIUM CHLOR 0.9% PF (SALINE LOCK) 10ML VIAL/SYR IV SCH (05:50)
[2023-10-25] MEDS: ACCU-CHEK COMFORT CURVE STRIP VI SCH (05:54)
[2023-10-25] MEDS: InsuLIN REG 1unit/0.01ml Soln (100units/ml) SC SCH (05:55)
[2023-10-25] MEDS ORDERED: NITROGLYCERIN 0.4 MG SL TAB SL PRN (06:30)
[2023-10-25] MEDS: DOCUSATE SOD 100 MG CAP PO PRN (07:57)
[2023-10-25] MEDS: SOD CHL 0.45% 1,000 ML IV ONE (08:16)
[2023-10-25] MEDS: cefTRIAXone 1GM/50ML D5W 50 ML IV SCH (10:01)
[2023-10-25] MEDS: HYDROcodone-ACET 5/325MG TAB PO PRN (10:01)
[2023-10-25] MEDS ORDERED: TIRZ10IN SC (11:08)
[2023-10-25] MEDS ORDERED: ATOR20TA50 PO (11:08)
[2023-10-25] MEDS ORDERED: LISI10TA34 PO (11:08)
[2023-10-25] MEDS ORDERED: ASPI-325 PO (11:08)
[2023-10-25] MEDS ORDERED: METF-372 PO (11:08)
[2023-10-25] MEDS ORDERED: CALC-606 PO (11:08)
[2023-10-25 11:58] LABS: Amphetamine Screen, Urine Neg (NEGATIVE); Barbiturate Scree,Urine Neg (NEGATIVE); Benzodiazephine Screen, Urine Neg (NEGATIVE); Cannabinoid Screen, Urine Neg (NEGATIVE); Cocaine Screen, Urine Neg (NEGATIVE); Opiate Scree,Urine Neg (NEGATIVE); Phencyclidine Screen, Urine Neg (NEGATIVE)
[2023-10-25] MEDS: POLYETHYLENE GLYCOL 17 GM PWDR PO ONE (12:11)
[2023-10-25] MEDS: NICOTINE 21MG/24 HR TOPICAL PATCH TD ONE (12:12)
[2023-10-25] MEDS: PANTOPRAZOLE 40 MG/10 ML VIAL INJ IV SCH (21:14)
[2023-10-26] VITALS (8 sets, daily range): BP systolic 99–128; BP diastolic 61–79; PULSE 60–87; RESP 16–20; TEMP 97.4–98.6; O2SAT 95–100
[2023-10-26] MEDS: ACETAMINOPHEN 325 MG TAB PO PRN (05:43)
[2023-10-26 06:48] LABS: Basophils # (auto) 0.1 10 ^3/uL (0-0.2); Basophils % (auto) 1.4 % (0.0-2.0); Eosinophils # (auto) 0.7 10 ^3/uL (0-0.8); Hematocrit 40.6 % (36.0-46.0); Hemoglobin 13.7 g/dL (12.2-16.2); Lymphocytes # (auto) 2.2 10 ^3/uL (0.4-5.4); Lymphocytes % (auto) 40.9 % (10.0-50.0); Mean Corpuscular Hemoglobin 29.1 pg (28.0-32.0); Mean Corpuscular Hgb Conc. 33.7 g/dL (32.0-36.0); Mean Corpuscular Volume 86.6 fL (80.0-100.0); Monocytes # (auto) 0.5 10 ^3/uL (0-1.3); Monocytes % (auto) 8.9 % (0.0-12.0); Neutrophils % (auto) 35.8 % (37.0-80.0); Red Blood Cells 4.69 10^6/uL (4.0-5.20); White Blood Cell 5.5 10^3/uL (4.4-10.8)
[2023-10-26 06:56] LABS: Chloride 108 mmol/L (98-107); Potassium 4.3 mmol/L (3.5-5.1); Sodium 141 mmol/L (136-145)
[2023-10-26 07:02] LABS: BUN/Creatinine Ratio 7.4 (10.0-20.0); Blood Urea Nitrogen 6 mg/dL (9-23); Glucose 99 mg/dL (74-106)
[2023-10-26 07:03] LABS: Lipase 69 U/L (12-53)
[2023-10-26 07:27] LABS: Anion Gap 2 (5-15); Carbon Dioxide 31 mmol/L (20-30)
[2023-10-26] MEDS: POLYETHYLENE GLYCOL 17 GM PWDR PO SCH (09:35)
[2023-10-26] MEDS: NICOTINE 21MG/24 HR TOPICAL PATCH TD SCH (09:39)
[2023-10-26] MEDS: LACTULOSE 20Gm/30ML SOLN PO PRN (11:35)
[2023-10-26] MEDS ORDERED: metroNIDAZOLE 500MG/100ML 100 ML IV SCH (14:00)
[2023-10-26] MEDS: metroNIDAZOLE 500 MG TAB PO SCH (15:37)
[2023-10-27] VITALS (8 sets, daily range): BP systolic 96–118; BP diastolic 56–76; PULSE 66–100; RESP 16–20; TEMP 97.6–98.6; O2SAT 95–99
[2023-10-27 07:01] LABS: Basophils # (auto) 0.1 10 ^3/uL (0-0.2); Basophils % (auto) 0.9 % (0.0-2.0); Eosinophils # (auto) 0.8 10 ^3/uL (0-0.8); Eosinophils % (auto) 13.4 % (0.0-7.0); Hematocrit 45.1 % (36.0-46.0); Hemoglobin 15.4 g/dL (12.2-16.2); Lymphocytes # (auto) 1.6 10 ^3/uL (0.4-5.4); Mean Corpuscular Hemoglobin 29.4 pg (28.0-32.0); Mean Corpuscular Hgb Conc. 34.2 g/dL (32.0-36.0); Mean Corpuscular Volume 85.9 fL (80.0-100.0); Monocytes # (auto) 0.6 10 ^3/uL (0-1.3); Monocytes % (auto) 9.5 % (0.0-12.0); Neutrophils # (auto) 3.3 10 ^3/uL (1.6-8.6); Neutrophils % (auto) 51.2 % (37.0-80.0); Nucleated Red Blood Cells % 0.3 %; Red Blood Cells 5.25 10^6/uL (4.0-5.20); White Blood Cell 6.3 10^3/uL (4.4-10.8)
[2023-10-27 07:22] LABS: Alanine Aminotransferase 68 U/L (7-40); Albumin 4.4 g/dL (3.2-4.8); Alkaline Phosphatase 75 U/L (46-116); Anion Gap 8 (5-15); Aspartate Aminotransferase 19 U/L (13-40); BUN/Creatinine Ratio 8.4 (10.0-20.0); Bilirubin, Total 0.5 mg/dL (0.2-1.0); Blood Urea Nitrogen 7 mg/dL (9-23); Calcium 11.4 mg/dL (8.7-10.4); Carbon Dioxide 28 mmol/L (20-30); Chloride 106 mmol/L (98-107); Glucose 116 mg/dL (74-106); Lipase 59 U/L (12-53); Potassium 3.8 mmol/L (3.5-5.1); Sodium 142 mmol/L (136-145); Total Protein 7.3 g/dL (5.7-8.2)
[2023-10-27] MEDS: METOCLOPRAMIDE HCL 5MG/ml INJ 2ml VIAL IV SCH (14:40)
[2023-10-27] MEDS: DOCUSATE SOD 100 MG CAP PO SCH (23:16)
[2023-10-28 01:00] VITALS: BP 112/81; PULSE 98; RESP 18; TEMP 98; O2SAT 96
[2023-10-28 05:00] VITALS: BP 101/69; PULSE 78; RESP 18; TEMP 97.8; O2SAT 99
[2023-10-28 06:56] LABS: Hematocrit 43.8 % (36.0-46.0); Mean Corpuscular Hemoglobin 29.4 pg (28.0-32.0); Mean Corpuscular Hgb Conc. 34.4 g/dL (32.0-36.0); Mean Corpuscular Volume 85.5 fL (80.0-100.0); Red Blood Cells 5.12 10^6/uL (4.0-5.20); Red Cell Distribution Width 13.6 % (11.8-14.3); White Blood Cell 6.7 10^3/uL (4.4-10.8)
[2023-10-28 06:58] LABS: Chloride 106 mmol/L (98-107); Potassium 3.6 mmol/L (3.5-5.1); Sodium 141 mmol/L (136-145)
[2023-10-28 06:59] LABS: Anion Gap 6 (5-15); Carbon Dioxide 29 mmol/L (20-30)
[2023-10-28 07:00] LABS: Calcium 11.4 mg/dL (8.7-10.4)
[2023-10-28 07:03] LABS: Band Neutrophils % (manual) 0; Basophils % (manual) 0 (0.0-2.0); Blast Cells 0; Metamyelocytes % 0; Myelocytes % 0; Promyelocytes % 0; Reactive Lymphocytes 0
[2023-10-28 07:04] LABS: BUN/Creatinine Ratio 7.9 (10.0-20.0); Blood Urea Nitrogen 7 mg/dL (9-23); Glucose 115 mg/dL (74-106)
[2023-10-28 07:05] LABS: Lipase 54 U/L (12-53)
[2023-10-28 07:30] VITALS: PULSE 85; RESP 18
[2023-10-28 09:16] VITALS: BP 94/55; PULSE 100; RESP 16; TEMP 98.7; O2SAT 97
[2023-10-28 09:39] LABS: Eosinophils % (manual) 19 (0-7); Lymphocytes % (manual) 30 (10.0-50.0); Monocytes % (manual) 12 (0-12); Platelet Estimate Adequate
[2023-10-28] MEDS ORDERED: METR-344 PO (10:28)
[2023-10-28 12:38] VITALS: BP 128/72; PULSE 99; RESP 16; TEMP 97.9; O2SAT 98
[2023-10-28 12:42] VITALS: BP 128/72; PULSE 99; RESP 16; TEMP 97.9; O2SAT 98
== END 2023-10-28 13:25 | disposition home or self-care (01) | DRG 254 ==
LOC: ER 02:11 → OVERFLOW 06:24 → ER 06:26 → WEST WING 10:47
PROVIDERS: ADMIT Nurse Practitioner Family; ATTEND Internal Medicine Pulmonary Disease
DX: I88.0 Nonspecific mesenteric lymphadenitis (principal); E11.9 Type 2 diabetes mellitus without complications; E78.00 Pure hypercholesterolemia, unspecified; F17.210 Nicotine dependence, cigarettes, uncomplicated; I10 Essential (primary) hypertension; M77.9 Enthesopathy, unspecified; Z83.3 Family history of diabetes mellitus; Z82.49 Family history of ischemic heart disease and other diseases of the circulatory system; Z90.710 Acquired absence of both cervix and uterus; Z90.49 Acquired absence of other specified parts of digestive tract; Z79.4 Long term (current) use of insulin
CPT/HCPCS: 36415; 74176; 76705; 80048; 80053; 80307; 81001; 81025; 82962; 83690; 85007; 85025; 85027; 86301; 96361; 96365; 96367; 96375; C9113; G0378; J1815; J2405; J2543

== ENCOUNTER 2024-01-24 19:58 | Inpatient (IN) | payer MEDICAID ==
[~2024-01-24] VITALS: Ht 170.2 cm; Wt 79.8 kg
[~2024-01-24 19:58] MED LIST changes: -ACET300T58 PO; -ACET500T58 PO; -ALBUAER3 IN; +ASPI-325 PO; -ATOR10TA52 PO; +ATOR20TA50 PO; -BENZ100C97 PO; +CALC-606 PO; -CIPR-173 PO; -LACT10SO3 PO; +LISI10TA34 PO; -LISI2.5T47 PO; -METF-370 PO; +METF-372 PO; +METR-344 PO; -METR500T PO; -PRED20TA2 PO; -SENN-58 PO; +TIRZ10IN SC
[2024-01-24 21:15] VITALS: PULSE 87; RESP 20; O2SAT 100
[2024-01-24 21:17] LABS: Basophils # (auto) 0.1 10 ^3/uL (0-0.2); Basophils % (auto) 0.7 % (0.0-2.0); Eosinophils # (auto) 0.9 10 ^3/uL (0-0.8); Hematocrit 44.1 % (36.0-46.0); Hemoglobin 15.3 g/dL (12.2-16.2); Lymphocytes # (auto) 1.9 10 ^3/uL (0.4-5.4); Mean Corpuscular Hemoglobin 29.8 pg (28.0-32.0); Mean Corpuscular Hgb Conc. 34.8 g/dL (32.0-36.0); Mean Corpuscular Volume 85.8 fL (80.0-100.0); Monocytes # (auto) 0.6 10 ^3/uL (0-1.3); Monocytes % (auto) 7.2 % (0.0-12.0); Neutrophils # (auto) 5.2 10 ^3/uL (1.6-8.6); Neutrophils % (auto) 60.1 % (37.0-80.0); Platelet Count (auto) 223 10^3/uL (140-450); Red Blood Cells 5.15 10^6/uL (4.0-5.20); Red Cell Distribution Width 13.8 % (11.8-14.3); White Blood Cell 8.6 10^3/uL (4.4-10.8)
[2024-01-24] MEDS: SODIUM CHLORIDE 0.9% 1,000 ML IVB ONE (21:24)
[2024-01-24] MEDS: ONDANSETRON HCL 4 MG/2 ML VIAL IV ONE (21:24)
[2024-01-24] MEDS: MORPHINE SULFATE 4 MG/ML SYR/VIAL IV ONE (21:25)
[2024-01-24 21:29] LABS: Alanine Aminotransferase 36 U/L (7-40); Alkaline Phosphatase 102 U/L (46-116); Anion Gap 8 (5-15); Aspartate Aminotransferase 18 U/L (13-40); BUN/Creatinine Ratio 9.1 (10.0-20.0); Bilirubin, Total 0.3 mg/dL (0.2-1.0); Blood Urea Nitrogen 7 mg/dL (9-23); Calcium 11.2 mg/dL (8.7-10.4); Carbon Dioxide 24 mmol/L (20-30); Chloride 108 mmol/L (98-107); Glucose 117 mg/dL (74-106); Lipase 51 U/L (12-53); Potassium 3.3 mmol/L (3.5-5.1); Sodium 140 mmol/L (136-145); Total Protein 8.1 g/dL (5.7-8.2)
[2024-01-24] MEDS ORDERED: NITROGLYCERIN 0.4 MG SL TAB SL PRN (23:30)
[2024-01-24] MEDS ORDERED: MORPHINE SULFATE INJ 2 MG/ml SYRG IV PRN (23:30)
[2024-01-24] MEDS ORDERED: DEXTROSE (50%) 50ML SYRG IV PRN (23:30)
[2024-01-24] MEDS ORDERED: ACETAMINOPHEN 325 MG TAB PO PRN (23:30)
[2024-01-24] MEDS ORDERED: hydrALAZINE HCL 20 MG/ML VL IV PRN (23:30)
[2024-01-24] MEDS ORDERED: DOCUSATE SOD 100 MG CAP PO PRN (23:30)
[2024-01-24] MEDS ORDERED: ONDANSETRON HCL 4 MG/2 ML VIAL IV PRN (23:30)
[2024-01-24 23:39] LABS: Urine Bacteria None Seen /hpf (None Seen)
[2024-01-24 23:49] LABS: Urine Blood Negative /uL (Negative); Urine Clarity Clear (Clear); Urine Color Light-Yellow (Yellow); Urine Protein, UAD Negative (Negative); Urine Urobilinogen Normal (Negative); Urine WBC <1 /hpf (0 - 5)
[2024-01-24 23:51] LABS: Urine Specific Gravity > 1.050 (1.001-1.035)
[2024-01-24] MEDS: SODIUM CHLORIDE 0.9% 1,000 ML IV SCH (23:56)
[2024-01-25] VITALS (7 sets, daily range): BP systolic 106–123; BP diastolic 71–75; PULSE 69–87; RESP 16–20; TEMP 97.7–98.4; O2SAT 96–99
[2024-01-25] MEDS: InsuLIN REG 1unit/0.01ml Soln (100units/ml) SC SCH
[2024-01-25] MEDS ORDERED: POTASSIUM CHL 20MEQ/100ML 100 ML IV SCH
[2024-01-25] MEDS: ACCU-CHEK COMFORT CURVE STRIP VI SCH (00:03)
[2024-01-25] MEDS: POTASSIUM CHL 20 Meq TABLET PO ONE (00:44)
[2024-01-25] MEDS: MORPHINE SULFATE INJ 2 MG/ml SYRG IV PRN (03:24)
[2024-01-25 07:23] LABS: Basophils # (auto) 0 10 ^3/uL (0-0.2); Basophils % (auto) 0.6 % (0.0-2.0); Eosinophils # (auto) 0.7 10 ^3/uL (0-0.8); Eosinophils % (auto) 11.1 % (0.0-7.0); Hemoglobin 13.5 g/dL (12.2-16.2); Lymphocytes # (auto) 1.7 10 ^3/uL (0.4-5.4); Lymphocytes % (auto) 25.8 % (10.0-50.0); Mean Corpuscular Hgb Conc. 34.7 g/dL (32.0-36.0); Mean Corpuscular Volume 86.5 fL (80.0-100.0); Monocytes # (auto) 0.6 10 ^3/uL (0-1.3); Monocytes % (auto) 8.6 % (0.0-12.0); Neutrophils # (auto) 3.6 10 ^3/uL (1.6-8.6); Neutrophils % (auto) 53.9 % (37.0-80.0); Platelet Count (auto) 170 10^3/uL (140-450); Red Blood Cells 4.51 10^6/uL (4.0-5.20); Red Cell Distribution Width 13.5 % (11.8-14.3); White Blood Cell 6.7 10^3/uL (4.4-10.8)
[2024-01-25 07:48] LABS: Alanine Aminotransferase 39 U/L (7-40); Alkaline Phosphatase 86 U/L (46-116); Anion Gap 6 (5-15); Aspartate Aminotransferase 25 U/L (13-40); BUN/Creatinine Ratio 10.8 (10.0-20.0); Bilirubin, Total 0.4 mg/dL (0.2-1.0); Blood Urea Nitrogen 7 mg/dL (9-23); Calcium 9.5 mg/dL (8.7-10.4); Carbon Dioxide 24 mmol/L (20-30); Chloride 111 mmol/L (98-107); Glucose 94 mg/dL (74-106); Potassium 3.7 mmol/L (3.5-5.1); Sodium 141 mmol/L (136-145); Total Protein 6.7 g/dL (5.7-8.2)
[2024-01-25] MEDS: ASPirin 81 mg TAB PO SCH (10:09)
[2024-01-25] MEDS: HYDROcodone-ACET 5/325MG TAB PO PRN (10:16)
[2024-01-25] MEDS: metroNIDAZOLE 500MG/100ML 100 ML IV SCH (17:26)
[2024-01-25] MEDS: ATORVASTATIN 20 MG TAB PO SCH (22:00)
[2024-01-26 01:00] VITALS: BP 121/72; PULSE 71; RESP 20; TEMP 98; O2SAT 17
[2024-01-26 05:00] VITALS: BP 109/73; PULSE 76; RESP 18; TEMP 98.4
[2024-01-26 09:00] VITALS: BP 129/76; PULSE 84; RESP 18; TEMP 98; O2SAT 97
[2024-01-26 10:40] LABS: Basophils # (auto) 0 10 ^3/uL (0-0.2); Basophils % (auto) 0.8 % (0.0-2.0); Eosinophils # (auto) 0.6 10 ^3/uL (0-0.8); Eosinophils % (auto) 12.2 % (0.0-7.0); Hemoglobin 14.1 g/dL (12.2-16.2); Lymphocytes # (auto) 1.1 10 ^3/uL (0.4-5.4); Lymphocytes % (auto) 23.2 % (10.0-50.0); Mean Corpuscular Hgb Conc. 35.2 g/dL (32.0-36.0); Mean Corpuscular Volume 85.1 fL (80.0-100.0); Monocytes # (auto) 0.5 10 ^3/uL (0-1.3); Monocytes % (auto) 9.4 % (0.0-12.0); Neutrophils # (auto) 2.7 10 ^3/uL (1.6-8.6); Neutrophils % (auto) 54.4 % (37.0-80.0); Nucleated Red Blood Cells % 0.2 %; Platelet Count (auto) 164 10^3/uL (140-450); Red Cell Distribution Width 13.6 % (11.8-14.3); White Blood Cell 4.9 10^3/uL (4.4-10.8)
[2024-01-26 10:48] LABS: Calcium 10.2 mg/dL (8.7-10.4); Chloride 110 mmol/L (98-107); Potassium 3.9 mmol/L (3.5-5.1); Sodium 141 mmol/L (136-145)
[2024-01-26 10:49] LABS: Anion Gap 5 (5-15); Carbon Dioxide 26 mmol/L (20-30)
[2024-01-26 10:54] LABS: Glucose 88 mg/dL (74-106)
[2024-01-26 11:04] LABS: BUN/Creatinine Ratio 7.8 (10.0-20.0); Blood Urea Nitrogen < 5 mg/dL (9-23)
[2024-01-26] MEDS: levoFLOXacin 500MG 100 ML IV SCH (11:59)
[2024-01-26 13:00] VITALS: BP 114/81; PULSE 76; RESP 20; TEMP 98.3; O2SAT 99
[2024-01-26] MEDS: POLYETHYLENE GLYCOL 17 GM PWDR PO ONE (15:57)
[2024-01-26] MEDS: LACTULOSE 20Gm/30ML SOLN PO ONE (15:58)
[2024-01-26 17:00] VITALS: BP 132/78; PULSE 75; RESP 20; TEMP 98.4; O2SAT 99
[2024-01-26 21:00] VITALS: BP 136/86; PULSE 76; RESP 20; TEMP 98.3; O2SAT 96
[2024-01-26] MEDS: LACTULOSE 20Gm/30ML SOLN PO SCH (21:37)
[2024-01-26] MEDS: MELATONIN 5 MG TAB PO ONE (23:20)
[2024-01-27 01:00] VITALS: BP 109/63; PULSE 71; RESP 19; TEMP 98.2; O2SAT 98
[2024-01-27 05:00] VITALS: BP 107/65; PULSE 79; RESP 20; TEMP 97.8; O2SAT 95
[2024-01-27 07:56] LABS: Folate (Folic Acid) 21.17 ng/mL (>5.38)
[2024-01-27 09:00] VITALS: BP 106/54; PULSE 77; RESP 20; TEMP 98; O2SAT 94
[2024-01-27] MEDS: POLYETHYLENE GLYCOL 17 GM PWDR PO SCH (11:05)
[2024-01-27 12:30] VITALS: BP 110/72; PULSE 76; RESP 20; TEMP 97.5; O2SAT 97
[2024-01-27] MEDS ORDERED: METR-344 PO (15:04)
[2024-01-27 16:30] VITALS: BP 125/76; PULSE 76; RESP 20; TEMP 98.3; O2SAT 100
[2024-01-27 18:09] VITALS: BP 125/76; PULSE 76; RESP 20; TEMP 98.3; O2SAT 100
== END 2024-01-27 18:46 | disposition home or self-care (01) | DRG 249 ==
LOC: ER 19:58 → OVERFLOW 23:33 → WEST WING 01-25 02:27
PROVIDERS: ADMIT Nurse Practitioner Family; ATTEND Nurse Practitioner Acute Care
DX: K52.9 Noninfective gastroenteritis and colitis, unspecified (principal); E11.9 Type 2 diabetes mellitus without complications; K57.30 Diverticulosis of large intestine without perforation or abscess without bleeding; E87.6 Hypokalemia; I10 Essential (primary) hypertension; E78.5 Hyperlipidemia, unspecified; F17.210 Nicotine dependence, cigarettes, uncomplicated; Z79.84 Long term (current) use of oral hypoglycemic drugs; Z79.899 Other long term (current) drug therapy; Z79.82 Long term (current) use of aspirin; Z83.3 Family history of diabetes mellitus; Z90.710 Acquired absence of both cervix and uterus; Z90.49 Acquired absence of other specified parts of digestive tract
CPT/HCPCS: 36415; 74177; 80048; 80053; 81001; 82607; 82746; 82962; 83036; 83516; 83605; 83690; 85025; 85048; 87045; 87177; 87427; 96375; G0378; J1956; J2405; J3490

== ENCOUNTER → 2024-02-19 | Outpatient (CLI) | payer MEDICAID ==
[~2024-02-19] MED LIST changes: -ASPI-325 PO
[2024-02-19 13:58] LABS: Basophils # (auto) 0.1 10 ^3/uL (0-0.2); Basophils % (auto) 1.1 % (0.0-2.0); Eosinophils # (auto) 0.8 10 ^3/uL (0-0.8); Eosinophils % (auto) 12.1 % (0.0-7.0); Hematocrit 42.1 % (36.0-46.0); Hemoglobin 14.7 g/dL (12.2-16.2); Lymphocytes # (auto) 1.8 10 ^3/uL (0.4-5.4); Lymphocytes % (auto) 28.4 % (10.0-50.0); Mean Corpuscular Hemoglobin 30.3 pg (28.0-32.0); Mean Corpuscular Hgb Conc. 34.9 g/dL (32.0-36.0); Mean Corpuscular Volume 86.8 fL (80.0-100.0); Monocytes # (auto) 0.6 10 ^3/uL (0-1.3); Monocytes % (auto) 9.2 % (0.0-12.0); Neutrophils # (auto) 3.1 10 ^3/uL (1.6-8.6); Neutrophils % (auto) 49.2 % (37.0-80.0); Nucleated Red Blood Cells % 0.1 %; Platelet Count (auto) 198 10^3/uL (140-450); Red Blood Cells 4.84 10^6/uL (4.0-5.20); Red Cell Distribution Width 14.1 % (11.8-14.3); White Blood Cell 6.4 10^3/uL (4.4-10.8)
[2024-02-19 14:10] LABS: INR 1.02 (0.9-1.15); Prothrombin Time 10.8 sec (9.3-11.8)
[2024-02-19 14:23] LABS: Alanine Aminotransferase 39 U/L (7-40); Albumin 4.7 g/dL (3.2-4.8); Alkaline Phosphatase 86 U/L (46-116); Anion Gap 5 (5-15); Aspartate Aminotransferase 15 U/L (13-40); BUN/Creatinine Ratio 15.2 (10.0-20.0); Bilirubin, Total 0.3 mg/dL (0.2-1.0); Blood Urea Nitrogen 10 mg/dL (9-23); Carbon Dioxide 27 mmol/L (20-30); Chloride 110 mmol/L (98-107); Glucose 105 mg/dL (74-106); Sodium 142 mmol/L (136-145)
[2024-02-19 14:24] LABS: Total Protein 7.5 g/dL (5.7-8.2)
[2024-02-19 14:28] LABS: Hepatitis B Surface Antibody Negative (Negative)
[2024-02-19 14:40] LABS: Hepatitis B Surface Antigen Negative (Negative)
[2024-02-19 15:01] LABS: Hepatitis C Antibody Negative (Negative)
[2024-02-20 10:06] LABS: Anti-Nuclear Antibody Direct Negative (Negative)
== END | disposition home or self-care (01) ==
LOC: LAB 13:25
PROVIDERS: ATTEND Internal Medicine Gastroenterology
DX: R10.9 Unspecified abdominal pain (principal)
CPT/HCPCS: 36415; 80053; 82728; 83013; 85025; 85610; 86038; 86706; 86803; 87340

== ENCOUNTER 2024-09-03 08:21 | Day surgery (SDC) | payer MEDICAID ==
[2024-09-01 12:46] LABS: Urine Bacteria None Seen /hpf (None Seen)
[2024-09-01 12:48] LABS: Basophils # (auto) 0.1 10 ^3/uL (0-0.2); Basophils % (auto) 1.2 % (0.0-2.0); Eosinophils # (auto) 0.4 10 ^3/uL (0-0.8); Eosinophils % (auto) 6.9 % (0.0-7.0); Hematocrit 44.2 % (36.0-46.0); Lymphocytes # (auto) 1.8 10 ^3/uL (0.4-5.4); Lymphocytes % (auto) 31.6 % (10.0-50.0); Mean Corpuscular Hemoglobin 29.4 pg (28.0-32.0); Mean Corpuscular Hgb Conc. 33.9 g/dL (32.0-36.0); Mean Corpuscular Volume 86.8 fL (80.0-100.0); Monocytes # (auto) 0.4 10 ^3/uL (0-1.3); Neutrophils % (auto) 53.3 % (37.0-80.0); Nucleated Red Blood Cells % 0.2 %; Platelet Count (auto) 189 10^3/uL (140-450); Red Cell Distribution Width 14.1 % (11.8-14.3); White Blood Cell 5.7 10^3/uL (4.4-10.8)
[2024-09-01 13:09] LABS: INR 1.01 (0.9-1.15); Partial Thromboplastin Time 24.6 SEC (24.5-34.5); Prothrombin Time 10.7 sec (9.3-11.8)
[2024-09-01 13:15] LABS: Urine Blood Negative /uL (Negative); Urine Clarity Turbid (Clear); Urine Color Yellow (Yellow); Urine Mucus FEW (None Seen); Urine Protein, UAD Negative (Negative); Urine Specific Gravity 1.023 (1.001-1.035); Urine Squamous Epithelial Cell MOD /hpf (<5); Urine Urobilinogen Normal (Negative); Urine WBC 2 /HPF (0-5); Urine pH 5.5 (5.0-9.0)
[2024-09-01 13:37] LABS: Alkaline Phosphatase 99 U/L (46-116)
[2024-09-01 13:38] LABS: Anion Gap 7 (5-15); Aspartate Aminotransferase 19 U/L (13-40); BUN/Creatinine Ratio 12.8 (10.0-20.0); Bilirubin, Total 0.3 mg/dL (0.2-1.0); Blood Urea Nitrogen 10 mg/dL (9-23); Carbon Dioxide 28 mmol/L (20-31); Chloride 106 mmol/L (98-107); Potassium 3.9 mmol/L (3.5-5.1); Sodium 141 mmol/L (136-145)
[2024-09-01 13:44] LABS: Alanine Aminotransferase 42 U/L (7-40); Calcium 11.5 mg/dL (8.7-10.4); Glucose 148 mg/dL (74-106)
[~2024-09-03] VITALS: Ht 170.2 cm; Wt 78.9 kg
[~2024-09-03 08:21] MED LIST changes: +GABA400C PO; -METF-372 PO; -METR-344 PO
[2024-09-03] MEDS ORDERED: LIDOCAINE 2% (LOCAL ANESTH.) PF 5ml SDV ONE (10:13)
[2024-09-03] MEDS ORDERED: PROPOFOL 10 MG/ML 20 ML IV ONE (10:13)
[2024-09-03 10:48] VITALS: TEMP 97.8; O2SAT 100
--- NOTE | 2024-09-03 11:16 | DVHOP2 ---
Operative Report DATE OF OPERATION: 09/03/24 PROCEDURE: Diagnostic Colonoscopy. PREOPERATIVE INDICATION: The patient is a 49 -year-old female undergoing colonoscopy for history of diverticulitis blood in stool and questionable history of polyps last colonoscopy 2020 POSTOPERATIVE DIAGNOSES: 1. Moderate left colon diverticular disease more prominent in the sigmoid 2. Trace to 1+ internal hemorrhoids otherwise completely normal colonoscopy examination up to the cecum and terminal ileum PROCEDURE PERFORMED BY: Lesley Delaney M.D. SCOPE: Olympus videocolonoscope. ASA CLASS: 2 PREOPERATIVE MEDICATIONS: Mac sedation PROCEDURE IN DETAIL: After obtaining an informed consent, the patient was placed on left lateral decubitus position. She was then sedated with the above medications. A rectal examination was performed that was normal. The colonoscope was then passed through the anus into the rectosigmoid and through the descending, transverse, and ascending colon up to the cecum with visualization of the appendiceal orifice, base of the cecum and the ileocecal valve. The colonoscope was then withdrawn. The distal 5 cm of the terminal ileum were normal No polyps masses or lesions were seen. There was no colitis. Patient had [id number] left colon diverticular disease more prominent in the sigmoid On retroflexion and straight on view the patient had trace to 1+ internal hemorrhoids The patient tolerated the procedure well without difficulty. WITHDRAWAL TIME: 8 minutes QUALITY OF THE PREP: [place] Bowel Prep score: 9. COMPLICATIONS : None SPECIMENS: None DISPOSITION: Stable D/C to home PLAN: 1. Repeat colonoscopy in 5-7 years 2. Resume GI soft diet advance as tolerated 3. Increase fluid and fiber intake 4. Outpatient follow up with me in 4-6 weeks to review results and discuss further management LESLEY DELANEY MD Sep 03, 2024 11:15
--- NOTE | 2024-09-03 11:18 | DVHOP2 ---
Operative Report DATE OF OPERATION: 09/03/24 PROCEDURE: Upper Endoscopy with biopsy. PREOPERATIVE INDICATION: The patient is a 49 -year-old female undergoing endoscopy for GERD and dyspepsia POSTOPERATIVE DIAGNOSES: 1. She had a 1-2 cm sliding-type hiatal hernia with slightly irregular squamocolumnar junction grade a erosive esophagitis 2. [id number] gastropathy and gastritis involving the body and antrum of the stomach from which biopsies were obtained 3. Otherwise normal examination up to the 2nd and 3rd part of the duodenum PROCEDURE PERFORMED BY: Lesley Delaney GI NURSE: Julita SCOPE: Olympus videoendoscope. ASA CLASS: 2. PREOPERATIVE MEDICATIONS: MAC sedation, Alejandro PROCEDURE IN DETAIL: After obtaining an informed consent, the patient was placed on left lateral decubitus position. The patient was then sedated with the above medications. A bite block was placed between her teeth. The endoscope was then passed through the oropharynx, into the esophagus, and through the stomach and pylorus up to the second and third part of the duodenum. The endoscope was then withdrawn. The 2nd and 3rd part of the duodenum were normal. Duodenal bulb showed minimal duodenitis. Duodenal biopsies were obtained. The pre-pyloric area antrum and body showed [id number] gastritis and some gastropathy. Gastric biopsies were obtained. On retroflexion the fundus and cardia were normal as was the angularis. The endoscope was then withdrawn into the distal esophagus Patient had a 2 cm sliding-type hiatal hernia with irregular squamocolumnar junction grade a erosive esophagitis. GE junction biopsies were obtained. The remaining distal and proximal esophagus and oropharynx were unremarkable The patient tolerated the procedure well without difficulty. COMPLICATIONS : None SPECIMENS: Duodenal biopsies Gastric biopsies GE junction biopsies DISPOSITION: Stable D/C to home PLAN: 1. Await for biopsy result 2. Will place pt on Protonix 40 mg p.o. daily 3. Resume GI soft diet advance as tolerated 4. Outpatient follow up with me in 4-6 weeks to review results and discuss further management 5. Avoid aspirin and NSAIDs smoking and alcohol LESLEY DELANEY MD Sep 03, 2024 11:18
[2024-09-03 11:30] VITALS: BP 101/46; PULSE 77; RESP 15; O2SAT 96
== END 2024-09-03 11:40 | disposition home or self-care (01) ==
LOC: GI 08:21
PROVIDERS: ATTEND Internal Medicine Gastroenterology
DX: K92.1 Melena (principal); K57.30 Diverticulosis of large intestine without perforation or abscess without bleeding; K29.50 Unspecified chronic gastritis without bleeding; B96.81 Helicobacter pylori [H. pylori] as the cause of diseases classified elsewhere; K21.00 Gastro-esophageal reflux disease with esophagitis, without bleeding; K29.80 Duodenitis without bleeding; K31.89 Other diseases of stomach and duodenum; K44.9 Diaphragmatic hernia without obstruction or gangrene; R10.13 Epigastric pain; F41.8 Other specified anxiety disorders; G62.9 Polyneuropathy, unspecified; Z79.899 Other long term (current) drug therapy; Z90.710 Acquired absence of both cervix and uterus; Z98.891 History of uterine scar from previous surgery; Z90.49 Acquired absence of other specified parts of digestive tract; Z86.0100 Personal history of colon polyps, unspecified; Z98.890 Other specified postprocedural states
CPT/HCPCS: 36415; 43239; 45378; 80053; 81001; 82962; 84702; 85025; 85610; 85730; 88305; 88312; 88342; J2003; J2704; J7030

== ENCOUNTER 2025-02-16 03:11 | Emergency (ER) | payer MEDICAID ==
[~2025-02-16] VITALS: Ht 170.2 cm; Wt 80.1 kg
[2025-02-16 03:12] VITALS: BP 128/83; PULSE 81; RESP 18; TEMP 97.5; O2SAT 98
--- NOTE | 2025-02-16 04:01 | ED.PDOC ---
GI ASSESSMENT HPI Comments This is a 49-year-old female, with a Hx of DM, thyroid disease, diverticulitis, high lipids, and HTN, presents to the ED with a chief complaint of diverticulitis flare-up with associated abdominal pain, nausea, and diarrhea for 2 days. Patient states she was told by her PCP to come to the ED when flare-ups occur. Patient reports abdominal pain as 10/10, with associated burning sensation to the abdomen. Patient reports symptoms are usually alleviated with antibiotics or other medications. Patient has no further complaints or modifying factors at this time. Patient otherwise denies emesis, hematemesis, chest pain, SOB, palpitations, fever, or chills. REVIEW OF SYSTEMS: General: No fever, no chills, no fatigue HEENT: No sore throat, no earache, no congestion, no neck pain. Cardiac: No chest pain. No palpitations. Lungs: No shortness of breath, no cough. GI: Positive nausea, Positive diarrhea. Positive abdominal pain. no vomiting, no constipation : No dysuria, frequency, or urgency. Musculoskeletal: No joint pain , no joint swelling, no extremity edema. Skin: No rash, no itching. Neuro: No headache, dizziness, or weakness PHYSICAL EXAM: General: Awake, alert and oriented. No acute distress. Skin: Skin in warm, dry and intact. Appropriate color for ethnicity. HEENT: The head is normocephalic and atraumatic. Conjunctivae are clear without exudates or hemorrhage. Sclera is non-icteric. EOM are intact. No signs of nystagmus. Eyelids are normal in appearance without swelling or lesions. Oral mucosa is pink and moist Neck: The neck is supple with painful range of motion. No JVD. Cardiac: Heart rate and rhythm are normal. No murmurs, gallops, or rubs are auscultated. Respiratory: No signs of respiratory distress. Lung sounds are clear in all lobes bilaterally without rales, rhonchi, or wheezes. Abdominal: Positive lower quadrant abdominal tenderness. Abdomen is soft, without distention, guarding or rigidity. Bowel sounds are present and normoactive in all four quadrants. Extremities: Upper and lower extremities are atraumatic in appearance without deformity or edema. Neurological: The patient is awake, alert and oriented to person, place, and time with normal speech. Speech is clear. There is no facial asymmetry. Psychiatric: Appropriate mood and affect. Good judgement and insight. Chief Complaint: Abdominal Pain Time Seen by MD: 03:50 Primary Care Provider: JEIMY Reviewed Notes: Nurses Notes, Medications, Allergies Allergies: Coded Allergies: NO KNOWN ALLERGIES (Unverified , 12/07/16) Home Meds Active Scripts Amoxicillin & Pot Clavulanate (AUGMENTIN TABLET) 875 Mg Tb, 875 MG PO BID for 5 Days, #10 TAB Prov:JULIETTE COSTELLO MD 02/16/25 Ibuprofen (Ibuprofen) 600 Mg Tab, 1 TAB PO TID for 5 Days, #15 TAB Prov:JULIETTE COSTELLO MD 02/16/25 Acetaminophen (Acetaminophen Er) 650 Mg Tab, 650 MG PO TIDPRN PRN, #15 TAB Prov:JULIETTE COSTELLO MD 02/16/25 Ibuprofen Micronized (Ibuprofen) 800 Mg Tab, 800 MG PO Q8HP PRN, #20 TAB Prov:RAPHAEL VALDEZ PAC 11/10/22 Reported Medications Gabapentin (Neurontin) 400 Mg Cap, 1000 MG PO BID, CAP 09/01/24 Tirzepatide (Mounjaro) 10 Mg/0.5 Ml Inj, SC 10/25/23 Calcium Carbonate-Cholecalcife (Ultra Calcium + Vitamin D 600-10 mg-Mcg) 1 Tab Tab, 1 TAB PO BID 10/25/23 Atorvastatin Calcium (ATORVASTATIN CALCIUM) 20 Mg Tab, 1 TAB PO DAILY 10/25/23 Lisinopril (Lisinopril) 10 Mg Tab, 1 TAB PO DAILY 10/25/23 Information Source: Patient Mode of Arrival: Ambulatory Timing: Days Duration: Since onset Prehospital treatment: None Severity: Moderate Pain Location: RLQ, LLQ Associated sign and symptoms: Nausea, Diarrhea, Abdominal Pain Past Medical History PAST MEDICAL HISTORY: DM, High Lipids, HTN, Thyroid Past Medical History (Other): Diverticulitis Surgical History: Cholecystectomy, Hysterectomy DIRECTOR DRUG SAFETY History: No Pertinent DIRECTOR DRUG SAFETY History Family History Family History: Family hx of DM, Family hx of heart justyna Social History Smoker: Cigarettes, Less Than 1 Pack/Day Alcohol: Rarely Drugs: Denies Drug Use Lives In: Home Was a procedure done? Was a procedure done?: No GI differential Dx Differential Diagnosis: Appendicitis, Constipation, Gastritis/PUD, Gastroenteritis, Inflammatory BD, UTI, Dehydration, Food Poisoning, Bacterial, Parasitic, Viral X-Ray, Labs, Meds, VS Vital Signs Date Time Temp Pulse Resp B/P (MAP) Pulse Ox O2 Delivery O2 Flow Rate FiO2 02/16/25 03:12 97.5 81 18 128/83 98 97.5 Lab Test 02/16/25 05:18 02/16/25 03:49 Range/Units Urine Color Colorless Yellow Urine Clarity Clear Clear Urine pH 6.5 5.0-9.0 Urine Specific [place] 1.008 1.001-1.035 Urine Protein Negative Negative Urine Ketones Negative Negative Urine Blood Negative Negative /uL Urine Nitrite Negative Negative Urine Bilirubin Negative Negative Urine Urobilinogen Normal Negative mg/dL Urine Leukocyte Esterase Negative Negative /uL Urine RBC 1 0 - 4 /hpf Urine Microscopic WBC < 1 0-5 /HPF Urine Squamous Epithelial Cells Few <5 /hpf Urine Bacteria None seen None Seen /hpf Urine Glucose Normal Normal mg/dL White Blood Count 7.5 4.4-10.8 10^3/uL Red Blood Count 5.26 H 4.0-5.20 10^6/uL Hemoglobin 15.3 12.2-16.2 g/dL Hematocrit 43.8 36.0-46.0 % Mean Corpuscular Volume 83.3 80.0-100.0 fL Mean Corpuscular Hemoglobin 29.0 28.0-32.0 pg Mean Corpuscular Hemoglobin Concent 34.8 32.0-36.0 g/dL Red Cell Distribution Width 14.1 11.8-14.3 % Platelet Count 239 140-450 10^3/uL Mean Platelet Volume 8.7 6.9-10.8 fL Neutrophils (%) (Auto) 62.8 37.0-80.0 % Lymphocytes (%) (Auto) 20.8 10.0-50.0 % Monocytes (%) (Auto) 8.5 0.0-12.0 % Eosinophils (%) (Auto) 7.0 0.0-7.0 % Basophils (%) (Auto) 0.9 0.0-2.0 % Neutrophils # (Auto) 4.7 1.6-8.6 10 ^3/uL Lymphocytes # (Auto) 1.5 0.4-5.4 10 ^3/uL Monocytes # (Auto) 0.6 0-1.3 10 ^3/uL Eosinophils # (Auto) 0.5 0-0.8 10 ^3/uL Basophils # (Auto) 0.1 0-0.2 10 ^3/uL Nucleated Red Blood Cells 0.1 % Sodium Level 138 136-145 mmol/L Potassium Level 4.0 3.5-5.1 mmol/L Chloride Level 104 98-107 mmol/L Carbon Dioxide Level 22 20-31 mmol/L Anion Gap 12 5-15 Blood Urea Nitrogen 8 L 9-23 mg/dL Creatinine 0.72 0.550-1.02 mg/dL Glomerular Filtration Rate Calc 102 >90 mL/min BUN/Creatinine Ratio 11.1 10.0-20.0 Serum Glucose 151 H 74-106 mg/dL Calcium Level 10.5 H 8.7-10.4 mg/dL [place] [id number] Ph: [phone] DIAGNOSTIC IMAGING Diagnostic Imaging Report : [id number] Signed PATIENT: ALEXX YOUSIF V ACCT: [id number] UNIT: [id number] : 1975 LOC: ER ROOM / BED: / AGE / SEX: 49 / F ADM STATUS: REG ER SERVICE [id number] ORDERING PHYSICIAN: JULIETTE COSTELLO MD PROCEDURE(s): ABPL - CT AB PEL WO CON-NO ORAL OR IV REASON: Abdominal pain ORDER NUMBER(s): [id number], ACCESSION NUMBER(s): [id number] Exam: CT CT AB PEL WO CON-NO ORAL OR IV History: Abdominal pain Comparison Study: CT CT AB PEL WITH IV CON ONLY on DOS: 01/24/24 Technique: Multidetector spiral CT of the abdomen and pelvis was performed from lung bases to pubic symphysis. Imaging was performed without intravenous contrast. Coronal and sagittal multiplanar reformats were obtained from the axial data set by the technologist. Radiation Dose : 1. Abdomen/Pelvis: CTDIvol 12.06 mGy, DLP 737.9 mGy*cm. Findings: Evaluation of vasculature and solid organs is limited due to lack of intravenous contrast use. Lung Bases: Lung bases are clear. Visualized portions of the heart and pericardium are unremarkable. Liver: The liver is normal in size. No focal lesions. Diffusely hypoattenuating liver parenchyma consistent with hepatic steatosis. Gallbladder and Biliary Tree: The gallbladder is surgically absent. No intrahepatic or extrahepatic biliary ductal dilatation. Spleen: Unremarkable Pancreas: The pancreas is grossly unremarkable. Adrenal Glands: Unremarkable Kidneys: Kidneys are unremarkable without calculi or hydronephrosis. GI tract: The stomach is grossly normal in appearance. Fluid-filled distal small bowel loops, nonspecific. There is liquid stool in the ascending colon. Colonic diverticulosis without acute diverticulitis. Normal caliber appendix without inflammatory changes. Peritoneum/mesentery/retroperitoneum. No evidence of free intraperitoneal air. No ascites. No evidence of suspicious lymphadenopathy. Abdominal Wall: Unremarkable. Vasculature: The visualized abdominal aorta is normal in size and caliber. Evaluation of abdominal and pelvic vessels is limited due to lack of intravenous contrast. Urinary Bladder: Grossly unremarkable for degree of distention. Pelvic Organs: Unremarkable Musculoskeletal: No aggressive focal bony lesions, acute fractures or dislocation. IMPRESSION: 1. Fluid-filled distal small bowel loops and liquid stool in the ascending c olon. Findings are nonspecific but can be seen with enteritis. 2. Colonic diverticulosis without acute diverticulitis. 3. Hepatic steatosis. 4. Cholecystectomy. Time of 1ST Reevaluation: 04:06 Reevaluation 1ST: Unchanged Patient Education/Counseling: Diagnosis, Treatment Family Education/Counseling: No Family Present SEPSIS Sepsis Screen Date sepsis recognized/suspect: Feb 16, 2025 Time Sepsis recognized/suspect: 311 Recent Procedure: No On Antibiotic Therapy: No Respiratory Rate >20: No Heart Rate >90: No Temp<36 C (96.8 F) or >38.3 C: No SBP <90 or MAP <65 mmHG: No New Acute Mental Status Change: No Is the patient on CPAP, BIPAP,: No Physician Orders Ct Ab Pel Wo Con-No Oral Or Iv (02/16/25 03:41) Vital Signs Date Time Temp Pulse Resp B/P (MAP) Pulse Ox O2 Delivery O2 Flow Rate FiO2 02/16/25 03:12 97.5 81 18 128/83 98 97.5 Laboratory Tests Test 02/16/25 03:49 White Blood Count 7.5 10^3/uL (4.4-10.8) Departure 1 Departure Time of Disposition: 00:00 Impression: Primary Impression: Abdominal pain Additional Impression: Colitis Disposition: 01 HOME / SELF CARE / HOMELESS Condition: Stable Additional Instructions: INSTRUCCIONES DE CORINA DE Urgencias Instrucciones: Annita atentamente todas las instrucciones proporcionadas en kaitlin paquete. Aunque le hayan dado el corina del Departamento de Emergencias, esto no significa que tenga un "certificado de buena brett". [] Hoy no se mclaughlin realizado ningn diagnstico definitivo para michele sntomas. Es posible que ests en proceso de desarrollar juan enfermedad grave. Es por eso que debe regresar al servicio de urgencias sin falta si presenta algn sntoma nuevo o que empeora (especialmente si michele sntomas incluyen dolor en el pecho, dificultad para respirar, dolor abdominal, fiebre, dolor de irwin, confusin, dificultad para chandra o caminar). Ramón es muy importante que consulte a un mdico de atencin primaria dentro de los prximos 1 a 3 burk para realizar un seguimiento. Si no puede conseguir juan samina, regrese al servicio de urgencias para juan nueva evaluacin. Dolor abdominal: instrucciones de cuidado Imagen de los cuatro cuadrantes del abdomen. Descripcin general El dolor abdominal tiene muchas causas posibles. Algunas no son graves y mejoran por s solas en unos burk. Otras requieren ms pruebas y tratamiento. Si el dolor contina o empeora, es necesario volver a examinarlo y es posible que necesite ms pruebas para averiguar qu es lo que est mal. Es posible que necesite juan ciruga para corregir el problema. No ignore los sntomas nuevos, pedro fiebre, nuseas y vmitos, problemas para orinar, dolor que empeora y mareos. Estos pueden ser signos de un problema ms grave. Si no mejora, es posible que necesite ms pruebas o tratamiento. El mdico lo mclaughlin examinado cuidadosamente, gaudencio pueden surgir problemas ms adelante. Si nota algn problema o sntomas nuevos, busque tratamiento mdico de inmediato . El seguimiento mdico es juan parte fundamental de moyer tratamiento y moyer seguridad. Asegrese de programar y acudir a todas las citas, y llame a moyer mdico si tiene problemas. Tambin es juan buena idea saber los resultados de michele pruebas y l samanta juan lista de los medicamentos que kiran. Infantry Weapons Officer puedes cuidarte en casa? Descansa hasta que te sientas mejor. Para prevenir la deshidratacin, joão abundante lquido. Elija agua y otros lquidos aarti hasta que se sienta mejor. Si tiene juan enfermedad renal, cardaca o heptica y debe limitar los lquidos, consulte con moyer mdico antes de aumentar la cantidad de lquidos que prince. Cuando sientas ganas de comer, empieza con pequeas cantidades. No tomes alcohol, cafena ni alimentos picantes, calientes o con alto contenido de grasa manfred jorge o dos burk. Evite los medicamentos antiinflamatorios pedro la aspirina, el ibuprofeno (Advil, Motrin) y el naproxeno (Aleve). Pueden causar malestar estomacal. Hable con moyer mdico si kiran aspirina a diario por otro problema de brett. Cundo debes pedir ayuda? Llame al 911 en cualquier momento en que crea que puede necesitar atencin de emergencia. Por ejemplo, llame si: Te desmayaste (perdiste el conocimiento). Tiene heces de color marrn o con nicolasa lauren. Vomitas lauren o lo que parecen posos de caf. Tienes un dolor intenso en el vientre. Llame a moyer mdico ahora o busque atencin mdica inmediata si: El dolor empeora, especialmente si se concentra en juan oscar determinada del abdomen. Tiene fiebre nueva o ms corina. Las heces son negras y parecen alquitrn, o tienen vetas de lauren. Tienes sangrado vaginal inesperado. Tiene sntomas de juan infeccin del tracto urinario. Estos pueden incluir: Dolor al orinar. Orinar con ms frecuencia de lo habitual. Lauren en la orina. Se siente mareado o aturdido, o siente que se puede desmayar. Preste atencin a los cambios en moyer brett y asegrese de comunicarse con moyer mdico si: No ests mejorando pedro esperabas. Crditos para el dolor abdominal: instrucciones de cuidado Actualizado al: 2023 Autor: Personal de [employer] e-Prescriptions Amoxicillin & Pot Clavulanate (AUGMENTIN TABLET) 875 Mg Tb 875 MG PO BID for 5 Days, #10 TAB Prov: JULIETTE COSTELLO MD 02/16/25 Ibuprofen (Ibuprofen) 600 Mg Tab 1 TAB PO TID for 5 Days, #15 TAB Prov: JULIETTE COSTELLO MD 02/16/25 Acetaminophen (Acetaminophen Er) 650 Mg Tab 650 MG PO TIDPRN PRN, #15 TAB Prov: JULIETTE COSTELLO MD 02/16/25 Discharged With: Self Comments Patient well-appearing, nontoxic. Advised prompt follow-up with PCP, return to the ED with any new, worsening or concerning symptoms. Critical Care Note Critical Care Time?: No Stability Stability form required: No Heart Score Heart Score: Heart Score Response (Comments) Value History N/A 0 EKG N/A 0 Age N/A 0 Risk Factors N/A 0 Troponin N/A 0 Total 0 I personally scribed for JULIETTE COSTELLO MD (YULI) on 02/16/25 at 04:01. E lectronically submitted by Trudy Bliss (CARON). I personally scribed for JULIETTE COSTELLO MD (YULI) on 02/16/25 at 04:45. Electronically submitted by Trudy Bliss (CARON). I personally scribed for JULIETTE COSTELLO MD (YULI) on 02/16/25 at 05:25. Electronically submitted by Trudy Bliss ([facility]). JULIETTE COSTELLO MD Feb 16, 2025 04:01
[2025-02-16 04:28] LABS: Chloride 104 mmol/L (98-107); Potassium 4.0 mmol/L (3.5-5.1); Sodium 138 mmol/L (136-145)
[2025-02-16 04:29] LABS: Anion Gap 12 (5-15); Carbon Dioxide 22 mmol/L (20-31)
[2025-02-16 04:30] LABS: Hematocrit 43.8 % (36.0-46.0); Hemoglobin 15.3 g/dL (12.2-16.2); Mean Corpuscular Hemoglobin 29.0 pg (28.0-32.0); Mean Corpuscular Volume 83.3 fL (80.0-100.0); Nucleated Red Blood Cells % 0.1 %
[2025-02-16 04:34] LABS: BUN/Creatinine Ratio 11.1 (10.0-20.0); Blood Urea Nitrogen 8 mg/dL (9-23); Calcium 10.5 mg/dL (8.7-10.4); Glucose 151 mg/dL (74-106)
--- NOTE | 2025-02-16 04:40 | DVH ---
Exam: CT CT AB PEL WO CON-NO ORAL OR IV History: Abdominal pain Comparison Study: CT CT AB PEL WITH IV CON ONLY on DOS: 01/24/24 Technique: Multidetector spiral CT of the abdomen and pelvis was performed from lung bases to pubic s ymphysis. Imaging was performed without intravenous contrast. Coronal and sagittal multiplanar reform ats were obtained from the axial data set by the technologist. Radiation Dose : 1. Abdomen/Pelvis: CTDIvol 12.06 mGy, DLP 737.9 mGy*cm. Findings: Evaluation of vasculature and solid organs is limited due to lack of intravenous contrast use. Lung Bases: Lung bases are clear. Visualized portions of the heart and pericardium are unremarkable. Liver: The liver is normal in size. No focal lesions. Diffusely hypoattenuating liver parenchyma con sistent with hepatic steatosis. Gallbladder and Biliary Tree: The gallbladder is surgically absent. No intrahepatic or extrahepatic b iliary ductal dilatation. Spleen: Unremarkable Pancreas: The pancreas is grossly unremarkable. Adrenal Glands: Unremarkable Kidneys: Kidneys are unremarkable without calculi or hydronephrosis. GI tract: The stomach is grossly normal in appearance. Fluid-filled distal small bowel loops, nonspec ific. There is liquid stool in the ascending colon. Colonic diverticulosis without acute diverticul itis. Normal caliber appendix without inflammatory changes. Peritoneum/mesentery/retroperitoneum. No evidence of free intraperitoneal air. No ascites. No evidenc e of suspicious lymphadenopathy. Abdominal Wall: Unremarkable. Vasculature: The visualized abdominal aorta is normal in size and caliber. Evaluation of abdominal a nd pelvic vessels is limited due to lack of intravenous contrast. Urinary Bladder: Grossly unremarkable for degree of distention. Pelvic Organs: Unremarkable Musculoskeletal: No aggressive focal bony lesions, acute fractures or dislocation. IMPRESSION: 1. Fluid-filled distal small bowel loops and liquid stool in the ascending colon. Findings are nonsp ecific but can be seen with enteritis. 2. Colonic diverticulosis without acute diverticulitis. 3. Hepatic steatosis. 4. Cholecystectomy.
[2025-02-16] MEDS ORDERED: ACETAMINOPHEN 325 MG TAB PO ONE (05:30)
[2025-02-16] MEDS ORDERED: KETOROLAC TROMETH 30 MG/ML 1ML VIAL IM ONE (05:30)
[2025-02-16] MEDS ORDERED: AUG875T PO (05:33)
[2025-02-16] MEDS ORDERED: IBUP-1454 PO (05:33)
[2025-02-16] MEDS ORDERED: ACET650T12 PO (05:33)
[2025-02-16 06:45] LABS: Urine Protein, UAD Negative (Negative)
== END 2025-02-16 09:18 | disposition left against medical advice (07) ==
LOC: ER 03:11
DX: K52.9 Noninfective gastroenteritis and colitis, unspecified (principal); R10.9 Unspecified abdominal pain; I10 Essential (primary) hypertension; Z79.899 Other long term (current) drug therapy; Z90.49 Acquired absence of other specified parts of digestive tract; Z90.710 Acquired absence of both cervix and uterus
CPT/HCPCS: 36415; 74176; 80048; 81001; 85025